=== PATIENT | female | born 1930 | race Caucasian/White ===

== ENCOUNTER 2017-01-08 12:17 | Emergency (ER) | payer MEDICARE, OTHER ==
[2017-01-08 12:31] VITALS: BP 137/52
[2017-01-08] MEDS ORDERED: Ketorolac 30 MG/ML SDV IM ONE (12:43)
[2017-01-08] MEDS ORDERED: Acetaminophen/HYDROcodone 325-10 MG Tab PO ONE (12:43)
--- NOTE | 2017-01-08 13:26 | EDM.PDOC ---
ED HPI GENERAL MEDICAL PROBLEM - General Chief Complaint: Lower Extremity Injury/Pain Stated Complaint: right knee pain Time Seen by Provider: 01/08/17 12:25 Source of Information: Reports: Patient History Limitations: Reports: No Limitations - History of Present Illness INITIAL COMMENTS - FREE TEXT/NARRATIVE: Patient is brought in via ambulance due to right knee pain and inflammation. She denies a fall today, states she fell on Monday and hurt her other(left) knee. Denies any trauma to the right knee recently. No other complaints today. 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 No pain when not using. Uses a walker to get around. Onset: Today, Sudden Duration: Intermittent Location: Reports: Lower Extremity, Right Quality: Reports: Ache Severity: Severe Worsens with: Reports: Movement Associated Symptoms: Reports: No Other Symptoms Right Knee Pain Score (Numeric/FACES): 10 - Related Data Allergies Allergy/AdvReac Type Severity Reaction Status Date / Time OKSANA Inhibitors Allergy Bronchospas Verified 12/30/15 20:21 ms valsartan [From Diovan] Allergy Bronchospas Verified 12/30/15 20:21 ms metoclopramide HCl AdvReac Nausea and Verified 12/31/15 08:42 [From Reglan] Vomiting Home Meds: Home Meds Aspirin [Halfprin] 81 mg PO DAILY 01/27/15 [History] Cholecalciferol (Vitamin D3) [Vitamin D3] 2,000 unit PO DAILY 01/27/15 [History] Cyanocobalamin (Vitamin B-12) [Cyanocobalamin Injection] 1,000 mcg IM ASDIRECTED 01/27/15 [History] Ezetimibe [Zetia] 10 mg PO DAILY 01/27/15 [History] Hydrochlorothiazide 25 mg PO DAILY 01/27/15 [History] Potassium Chloride [K-Tab ER] 20 meq PO DAILY 01/27/15 [History] Acetaminophen [Acetaminophen Extra Strength] 1,000 mg PO TID PRN 01/08/16 [ History] Carvedilol [Coreg] 3.125 mg PO BIDMEALS 01/08/16 [History] atorvaSTATin [Lipitor] 40 mg PO BEDTIME 01/08/16 [History] Acetaminophen/Diphenhydramine [Mapap PM] 1 tab PO BEDTIME PRN #0 tablet [Rx] Magnesium Chloride [Mag-64] 128 mg PO TID #100 tab.er 01/22/16 [Rx] Nystatin [Nystatin Crm] 1 gm TOP BID #1 tube 01/22/16 [Rx] Past Medical History HEENT History: Reports: Hard of Hearing Cardiovascular History: Reports: Hypertension Other Cardiovascular History: Valvular heart disease. hypopotassemia. 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: Musculoskeletal History: Reports: Osteoarthritis Other Musculoskeletal History: Carpal tunnel syndrome Other Endocrine/Metabolic History: Hyperglycemia Other Hematologic History: VitaminD deficiency Immunologic History: Reports: None - Infectious Disease History Infectious Disease History: Reports: C-Difficile - Past Surgical History HEENT Surgical History: Reports: Cataract Surgery Musculoskeletal Surgical History: Reports: Knee Replacement Social & Family History - Family History Other Oncologic Family History: sister of cancer - Tobacco Use Smoking Status *Q: Unknown Ever Smoked Years of Tobacco use: 5 Used Tobacco, but Quit: Yes Second Hand Smoke Exposure: Yes - Recreational Drug Use Recreational Drug Use: No Review of Systems - Review of Systems Review Of Systems: See Below Constitutional: Reports: No Symptoms Eyes: Reports: No Symptoms Ears: Reports: No Symptoms Nose: Reports: No Symptoms Mouth/Throat: Reports: No Symptoms Respiratory: Reports: No Symptoms Cardiovascular: Reports: No Symptoms GI/Abdominal: Reports: No Symptoms Genitourinary: Reports: No Symptoms Musculoskeletal: Reports: Leg Pain, Joint Swelling Skin: Reports: No Symptoms Neurological: Reports: No Symptoms Psychiatric: Reports: No Symptoms ED EXAM, GENERAL - Physical Exam Exam: See Below Exam Limited By: No Limitations General Appearance: Alert, WD/WN, Mild Distress Respiratory/Chest: No Respiratory Distress, Lungs Clear, Normal Breath Sounds, No Accessory Muscle Use, Chest Non-Tender Cardiovascular: Normal Peripheral Pulses, Regular Rate, Rhythm, No Murmur Peripheral Pulses: 2+: Posterior Tibial (L), Posterior Tibial (R), Dorsalis Pedis (L), Dorsalis Pedis (R) GI/Abdominal: Normal Bowel Sounds, Soft, Non-Tender Extremities: Normal Inspection, Normal Range of Motion, Non-Tender, Normal Capillary Refill, Pedal Edema, Other (right knee edematous, full range of motion , pain only on ambulation) Neurological: Alert, Oriented, CN II-XII Intact Psychiatric: Normal Affect, Normal Mood Skin Exam: Warm, Dry, Intact Lymphatic: No Adenopathy Course - Vital Signs Last Recorded V/S: Last Vital Signs Temp 37.2 C 01/08/17 12:24 Pulse 60 01/08/17 12:24 Resp 16 01/08/17 12:24 BP 137/52 L 01/08/17 12:24 Pulse Ox 94 L 01/08/17 12:24 - Orders/Labs/Meds Orders: Active Orders 24 hr Category Date Time Status Knee 3V Rt [CR] Stat Exams 01/08/17 12:43 Taken Meds: Medications Discontinued Medications Generic Name Dose Route Start Last Admin Trade Name Freq PRN Reason Stop Dose Admin Hydrocodone Bitart/Acetaminophen 1 tab 01/08/17 12:43 01/08/17 12:56 [place] 325-10 Mg PO 01/08/17 12:44 1 tab ONETIME ONE Administration Hydrocodone Bitart/Acetaminophen 1 packet 01/08/17 13:31 Take Home: Acetaminophen/Hydrocodone 325-10mg PO 01/08/17 13:32 ONETIME ONE Ketorolac Tromethamine 30 mg 01/08/17 12:43 01/08/17 13:01 Toradol IM 01/08/17 12:44 30 mg ONETIME ONE Administration - Re-Assessments/Exams Free Text/Narrative Re-Assessment/Exam: 01/08/17 13:29 x-ray negative for acute process, has joint effusion Departure - Departure Time of Disposition: 14:14 Disposition: Home, Self-Care 01 Condition: Good Clinical Impression: Swelling of knee joint, right Right knee DJD Qualifiers: Osteoarthritis type: other secondary Qualified Code(s): 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 You can safely apply ice for 20-30 minutes at a time, then remove for at least that long. Do not apply ice directly to skin without putting it in some protective cover like a pillow case or sock, etc. Alternate your pain medication with some ibuprofen for pain relief and to reduce the swelling you have. Please follow up with your regular medical provider for additional symptom complaints and plan on surgery in January. Please call us if you have any questions or concerns. 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 You can safely apply ice for 20-30 minutes at a time, then remove for at least that long. Do not apply ice directly to skin without putting it in some protective cover like a pillow case or sock, etc. Alternate your pain medication with some ibuprofen for pain relief and to reduce the swelling you are likely to encounter. Please follow up with your regular medical provider for additional symptom complaints and plan on surgery in January. Please call us if you have any questions or concerns.
[2017-01-08] MEDS ORDERED: Take Home: Acetaminophen/HYDROcodone 325-10 MG, 5 Tab Pack PO ONE (13:31)
== END 2017-01-08 14:31 | disposition home or self-care (01) ==
LOC: VM.ED 12:17
DX: M17.5 Other unilateral secondary osteoarthritis of knee (principal); I10 Essential (primary) hypertension; Z79.899 Other long term (current) drug therapy; Z87.440 Personal history of urinary (tract) infections; Z88.8 Allergy status to other drugs, medicaments and biological substances; Z79.82 Long term (current) use of aspirin; Z98.49 Cataract extraction status, unspecified eye; Z96.659 Presence of unspecified artificial knee joint; Z87.891 Personal history of nicotine dependence
CPT/HCPCS: 73562; 96372; 99283; 99284; A9270; J1885

== ENCOUNTER 2017-06-03 13:58 | Emergency (ER) | payer MEDICARE, OTHER ==
[2017-06-03 14:10] VITALS: BP 116/50
[2017-06-03] MEDS ORDERED: Take Home: Codeine/Promethazine 10-6.25 MG/5 ML Syrup 5 ML, 2 Cup Pack PO ONE (14:38)
--- NOTE | 2017-06-04 02:22 | EDM.PDOC ---
ED HPI GENERAL MEDICAL PROBLEM - General Chief Complaint: General Stated Complaint: COLD Time Seen by Provider: 06/03/17 14:25 Source of Information: Reports: Patient, Family History Limitations: Reports: No Limitations - History of Present Illness INITIAL COMMENTS - FREE TEXT/NARRATIVE: Pt. complains of 5 day history of congestion, cough, sore throat, and mild, intermittent diarrhea. She states that she is not experiencing any vomiting, chest pain, or shortness of breath. Denies any skin rashes. She has not been experiencing any weakness. Location: Reports: Generalized - Related Data Allergies Allergy/AdvReac Type Severity Reaction Status Date / Time OKSANA Inhibitors Allergy Bronchospas Verified 12/30/15 20:21 ms valsartan [From Diovan] Allergy Bronchospas Verified 12/30/15 20:21 ms metoclopramide HCl AdvReac Nausea and Verified 12/31/15 08:42 [From Reglan] Vomiting Home Meds: Home Meds Aspirin [Halfprin] 81 mg PO DAILY 01/27/15 [History] Cholecalciferol (Vitamin D3) [Vitamin D3] 2,000 unit PO DAILY 01/27/15 [History] Cyanocobalamin (Vitamin B-12) [Cyanocobalamin Injection] 1,000 mcg IM ASDIRECTED 01/27/15 [History] Hydrochlorothiazide 25 mg PO DAILY 01/27/15 [History] Potassium Chloride [K-Tab ER] 20 meq PO DAILY 01/27/15 [History] Acetaminophen [Acetaminophen Extra Strength] 1,000 mg PO TID PRN 01/08/16 [ History] Carvedilol [Coreg] 3.125 mg PO BIDMEALS 01/08/16 [History] Acetaminophen/Diphenhydramine [Mapap PM] 1 tab PO BEDTIME PRN #0 tablet [Rx] Magnesium Chloride [Mag-64] 128 mg PO TID #100 tab.er 01/22/16 [Rx] Nystatin [Nystatin Crm] 1 gm TOP BID #1 tube 01/22/16 [Rx] Lovastatin [Mevacor] 40 mg PO BEDTIME 01/08/17 [History] Metoprolol Succinate [Toprol Xl] 50 mg PO DAILY 01/08/17 [History] Codeine/Promethazine [Phenergan with Codeine] 5 ml PO Q6HR PRN #473 ml 06/03/17 [Rx] Past Medical History HEENT History: Reports: Hard of Hearing Cardiovascular History: Reports: Hypertension Other Cardiovascular History: Valvular heart disease. hypopotassemia. 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: Musculoskeletal History: Reports: Osteoarthritis Other Musculoskeletal History: Carpal tunnel syndrome Other Endocrine/Metabolic History: Hyperglycemia Other Hematologic History: VitaminD deficiency Immunologic History: Reports: None - Infectious Disease History Infectious Disease History: Reports: C-Difficile - Past Surgical History HEENT Surgical History: Reports: Cataract Surgery Other Neurological Surgeries/Procedures: LOWER BACK Musculoskeletal Surgical History: Reports: Knee Replacement Social & Family History - Family History Other Oncologic Family History: sister of cancer - Tobacco Use Smoking Status *Q: Former Smoker Years of Tobacco use: 5 Used Tobacco, but Quit: Yes Month Tobacco Last Used: 40 years ago Second Hand Smoke Exposure: Yes - Alcohol Use Days Per Week of Alcohol Use: 0 - Recreational Drug Use Recreational Drug Use: No ED ROS GENERAL - Review of Systems Review Of Systems: See Below Constitutional: Reports: Malaise, Decreased Appetite HEENT: Reports: Rhinitis, Sinus Problem Respiratory: Reports: Cough Cardiovascular: Reports: No Symptoms. Denies: Chest Pain Endocrine: Reports: Fatigue GI/Abdominal: Reports: Diarrhea. Denies: Black Stool, Bloody Stool, Distension , Flatus, Hematemesis : Reports: No Symptoms. Denies: Discharge, Dysuria, Incontinence Musculoskeletal: Reports: No Symptoms Skin: Reports: No Symptoms Neurological: Reports: No Symptoms Psychiatric: Reports: No Symptoms Hematologic/Lymphatic: Reports: No Symptoms Immunologic: Reports: No Symptoms ED EXAM, GENERAL - Physical Exam Exam: See Below Exam Limited By: No Limitations General Appearance: Alert, WD/WN, No Apparent Distress Ears: Normal External Exam, Normal Canal, Hearing Grossly Normal, Normal TMs Ear Exam: Bilateral Ear: Auricle Normal, Canal Normal, TM normal Nose: Normal Inspection, Normal Mucosa, No Blood Throat/Mouth: Normal Inspection, Normal Lips, Normal Teeth, Normal Gums, Normal Oropharynx, Normal Voice, No Airway Compromise Head: Atraumatic, Normocephalic Neck: Normal Inspection, Supple, Non-Tender, Full Range of Motion Respiratory/Chest: No Respiratory Distress, Lungs Clear, Normal Breath Sounds, No Accessory Muscle Use, Chest Non-Tender Cardiovascular: Normal Peripheral Pulses, Regular Rate, Rhythm, No Edema, No Gallop, No JVD, No Murmur, No Rub GI/Abdominal: Normal Bowel Sounds, Soft, Non-Tender, No Organomegaly, No Distention, No Abnormal Bruit, No Mass Back Exam: Normal Inspection, Full Range of Motion, NT Extremities: Normal Inspection, Normal Range of Motion, Non-Tender, Normal Capillary Refill, No Pedal Edema Neurological: Alert, Oriented, CN II-XII Intact, Normal Cognition, Normal Gait, Normal Reflexes, No Motor/Sensory Deficits Psychiatric: Normal Affect, Normal Mood Skin Exam: Warm, Dry, Intact, Normal Color, No Rash Lymphatic: No Adenopathy Course - Vital Signs Last Recorded V/S: Last Vital Signs Temp 36.7 C 06/03/17 14:06 Pulse 70 06/03/17 14:06 Resp 16 06/03/17 14:06 BP 116/50 L 06/03/17 14:06 Pulse Ox 97 06/03/17 14:06 - Orders/Labs/Meds Meds: Medications Discontinued Medications Generic Name Dose Route Start Last Admin Trade Name Freq PRN Reason Stop Dose Admin Promethazine HCl/Codeine 2 packet 06/03/17 14:38 06/03/17 15:02 Take Home: Codeine/Prometh 10-6.25 Mg, 2 Pack PO 06/03/17 14:39 2 packet ONETIME ONE Administration Departure - Departure Time of Disposition: 15:05 Disposition: Home, Self-Care 01 Condition: Good Clinical Impression: Upper respiratory infection - Discharge Information Prescriptions: Codeine/Promethazine [Phenergan with Codeine] 5 ml PO Q6HR PRN #473 ml PRN Reason: Cough Instructions: Upper Respiratory Infection, Adult, [id number] Referrals: Valorie Antonio MD [Primary Care Provider] - Forms: ED Department Discharge Additional Instructions: promethazine/codeine cough medicine 1 tsp. every 6 hours as needed for cough. Follow-up in clinic in 7-10 days, sooner if not improving.
== END 2017-06-03 15:05 | disposition home or self-care (01) ==
LOC: VM.ED 13:58
DX: J06.9 Acute upper respiratory infection, unspecified (principal); I10 Essential (primary) hypertension; Z88.8 Allergy status to other drugs, medicaments and biological substances; Z79.82 Long term (current) use of aspirin; Z79.899 Other long term (current) drug therapy; Z87.891 Personal history of nicotine dependence
CPT/HCPCS: 87804; 99284; A9270; 99283-GF

== ENCOUNTER 2017-06-07 13:02 | Observation (INO) | payer MEDICARE, OTHER ==
--- NOTE | 2017-06-07 13:29 | EDM.PDOC ---
ED HPI GENERAL MEDICAL PROBLEM - General Chief Complaint: Respiratory Problem Time Seen by Provider: 06/07/17 13:09 Source of Information: Reports: Patient, EMS Notes Reviewed, Family, Old Records , RN, RN Notes Reviewed History Limitations: Reports: No Limitations - History of Present Illness INITIAL COMMENTS - FREE TEXT/NARRATIVE: Patient presents to the emergency room at [facility] with a one-week history of congestion, cough, poor appetite. The patient was seen in this ER last week and was diagnosed with an upper respiratory infection and sent home. The patient states since her visit here she has progressively gotten weak, left side greater than the right. The patient states her weakness is mainly in the left lower leg. The patient denies any focal neurological deficits. The patient states that she did fall last evening when trying to ambulate in her home. The patient denies any LOC. The patient denies any head trauma. The patient states her appetite has been poor. She has been trying to drink lots of water. No SOB. No chest pain. Patient denies any N/V/D. Onset: Gradual - Related Data Allergies Allergy/AdvReac Type Severity Reaction Status Date / Time OKSANA Inhibitors Allergy Bronchospas Verified 06/07/17 13:19 ms valsartan [From Diovan] Allergy Bronchospas Verified 06/07/17 13:19 ms metoclopramide HCl AdvReac Nausea and Verified 06/07/17 13:19 [From Reglan] Vomiting Home Meds: Home Meds Aspirin [Halfprin] 81 mg PO DAILY 01/27/15 [History] Cholecalciferol (Vitamin D3) [Vitamin D3] 2,000 unit PO DAILY 01/27/15 [History] Cyanocobalamin (Vitamin B-12) [Cyanocobalamin Injection] 1,000 mcg IM ASDIRECTED 01/27/15 [History] Hydrochlorothiazide 25 mg PO DAILY 01/27/15 [History] Potassium Chloride [K-Tab ER] 20 meq PO DAILY 01/27/15 [History] Acetaminophen [Acetaminophen Extra Strength] 1,000 mg PO TID PRN 01/08/16 [ History] Carvedilol [Coreg] 3.125 mg PO BIDMEALS 01/08/16 [History] Acetaminophen/Diphenhydramine [Mapap PM] 1 tab PO BEDTIME PRN #0 tablet [Rx] Magnesium Chloride [Mag-64] 128 mg PO TID #100 tab.er 01/22/16 [Rx] Nystatin [Nystatin Crm] 1 gm TOP BID #1 tube 01/22/16 [Rx] Lovastatin [Mevacor] 40 mg PO BEDTIME 01/08/17 [History] Metoprolol Succinate [Toprol Xl] 50 mg PO DAILY 01/08/17 [History] Codeine/Promethazine [Phenergan with Codeine] 5 ml PO Q6HR PRN #473 ml 06/03/17 [Rx] Past Medical History HEENT History: Reports: Hard of Hearing Cardiovascular History: Reports: Hypertension Other Cardiovascular History: Valvular heart disease. hypopotassemia. 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: Musculoskeletal History: Reports: Osteoarthritis Other Musculoskeletal History: Carpal tunnel syndrome Other Endocrine/Metabolic History: Hyperglycemia Other Hematologic History: VitaminD deficiency Immunologic History: Reports: None - Infectious Disease History Infectious Disease History: Reports: C-Difficile - Past Surgical History HEENT Surgical History: Reports: Cataract Surgery Other Neurological Surgeries/Procedures: LOWER BACK Musculoskeletal Surgical History: Reports: Knee Replacement Social & Family History - Family History Other Oncologic Family History: sister of cancer - Tobacco Use Smoking Status *Q: Former Smoker Years of Tobacco use: 5 Used Tobacco, but Quit: Yes Month Tobacco Last Used: 40 years ago Second Hand Smoke Exposure: Yes - Alcohol Use Days Per Week of Alcohol Use: 0 - Recreational Drug Use Recreational Drug Use: No ED ROS GENERAL - Review of Systems Review Of Systems: See Below Constitutional: Reports: Weakness, Decreased Appetite. Denies: Fever, Chills HEENT: Reports: Eye Discharge. Denies: Ear Pain, Rhinitis, Sinus Problem, Throat Pain Respiratory: Reports: Shortness of Breath, Cough. Denies: Sputum Cardiovascular: Denies: Chest Pain, Palpitations GI/Abdominal: Denies: Abdominal Pain, Nausea, Vomiting Skin: Reports: No Symptoms Neurological: Reports: Weakness (LLE). Denies: Dizziness, Headache, Numbness, Paresthesia, Tingling ED EXAM, GENERAL - Physical Exam Exam: See Below Exam Limited By: No Limitations General Appearance: Alert, No Apparent Distress, Obese Ears: Normal External Exam, Normal Canal, Normal TMs Ear Exam: Bilateral Ear: TM normal Nose: Normal Inspection, Clear Rhinorrhea Throat/Mouth: Normal Inspection, Normal Oropharynx, No Airway Compromise Respiratory/Chest: No Respiratory Distress, Lungs Clear, Normal Breath Sounds Cardiovascular: Normal Peripheral Pulses, Regular Rate, Rhythm Peripheral Pulses: 2+: Radial (L), Radial (R) GI/Abdominal: Normal Bowel Sounds, Soft, Non-Tender Neurological: Alert, Oriented, No Motor/Sensory Deficits Skin Exam: Warm, Dry, Intact, Normal Color, No Rash Course - Vital Signs Last Recorded V/S: Last Vital Signs Temp 35.6 C 06/07/17 13:10 Pulse 87 06/07/17 13:10 Resp 20 06/07/17 13:10 BP 113/63 06/07/17 13:10 Pulse Ox 94 L 06/07/17 13:10 - Orders/Labs/Meds Orders: Active Orders 24 hr Category Date Time Status Chest 1V Frontal [CR] Stat Exams 06/07/17 13:42 Taken Head wo Cont [CT] Stat Exams 06/07/17 14:28 Taken BASIC METABOLIC PANEL,BMP [CHEM] Stat Lab 06/07/17 13:55 Received C-REACTIVE PROTEIN [CHEM] Stat Lab 06/07/17 13:55 Received CULTURE BLOOD [BC] Stat Lab 06/07/17 13:55 Received CULTURE BLOOD [BC] Stat Lab 06/07/17 14:02 Received LACTIC ACID [CHEM] Stat Lab 06/07/17 13:55 Received MAGNESIUM [CHEM] Stat Lab 06/07/17 13:55 Received Sodium Chloride 0.9% [Saline Flush] Med 06/07/17 13:43 Active 10 ml FLUSH ASDIRECTED PRN Blood Culture x2 Reflex Set [OM.PC] Stat Oth 06/07/17 13:44 Ordered Peripheral IV Insertion Adult [OM.PC] Routine Oth 06/07/17 13:43 Ordered Medication Orders Sodium Chloride (Saline Flush) 10 ml FLUSH ASDIRECTED PRN PRN Reason: Keep Vein Open Labs: Laboratory Tests 06/07/17 Range/Units 13:55 WBC 6.2 (4.0-10.0) x10^3/uL RBC 3.53 L (4.00-5.50) x10^6/uL Hgb 10.4 L (12.0-16.0) g/dL Hct 31.8 L (33.0-47.0) % MCV 90.1 D (78.0-93.0) fL MCH 29.5 (26.0-32.0) pg MCHC 32.7 (32.0-36.0) g/dL RDW Coeff of Jad 13.7 (10.0-15.0) % Plt Count 166 (130-400) x10^3/uL Neut % (Auto) 81.5 H (50.0-80.0) % Lymph % (Auto) 6.3 L (25.0-50.0) % [place] % (Auto) 9.1 (2.0-11.0) % Eos % (Auto) 2.9 (0.0-4.0) % Baso % (Auto) 0.2 (0.2-1.2) % Meds: Medications Generic Name Dose Route Start Last Admin Trade Name Freq PRN Reason Stop Dose Admin Sodium Chloride 10 ml 06/07/17 13:43 Saline Flush FLUSH ASDIRECTED PRN Keep Vein Open Discontinued Medications Generic Name Dose Route Start Last Admin Trade Name Freq PRN Reason Stop Dose Admin Lactated Ringer's 1,000 mls @ 999 mls/hr 06/07/17 13:47 Ringers, Lactated IV 06/07/17 14:47 ONETIME ONE Departure - Departure Time of Disposition: 14:53 Disposition: Refer to Observation Condition: Good Clinical Impression: Dry cough, Dehydration Lower extremity weakness Qualifiers: Laterality: left Qualified Code(s): R29.898 - Other symptoms and signs involving the musculoskeletal system - Discharge Information - Problem List Review Problem List Initiated/Reviewed/Updated: Yes - My Orders Last 24 Hours: My Active Orders 06/07/17 13:42 Chest 1V Frontal [CR] Stat 06/07/17 13:43 Sodium Chloride 0.9% [Saline Flush] 10 ml FLUSH ASDIRECTED PRN Peripheral IV Insertion Adult [OM.PC] Routine 06/07/17 13:44 Blood Culture x2 Reflex Set [OM.PC] Stat 06/07/17 13:55 BASIC METABOLIC PANEL,BMP [CHEM] Stat C-REACTIVE PROTEIN [CHEM] Stat CULTURE BLOOD [BC] Stat LACTIC ACID [CHEM] Stat MAGNESIUM [CHEM] Stat 06/07/17 14:02 CULTURE BLOOD [BC] Stat 06/07/17 14:28 Head wo Cont [CT] Stat - Assessment/Plan Admission H&P: Please use this note as an admission H&P Last 24 Hours: My Active Orders 06/07/17 13:42 Chest 1V Frontal [CR] Stat 06/07/17 13:43 Sodium Chloride 0.9% [Saline Flush] 10 ml FLUSH ASDIRECTED PRN Peripheral IV Insertion Adult [OM.PC] Routine 06/07/17 13:44 Blood Culture x2 Reflex Set [OM.PC] Stat 06/07/17 13:55 BASIC METABOLIC PANEL,BMP [CHEM] Stat C-REACTIVE PROTEIN [CHEM] Stat CULTURE BLOOD [BC] Stat LACTIC ACID [CHEM] Stat MAGNESIUM [CHEM] Stat 06/07/17 14:02 CULTURE BLOOD [BC] Stat 06/07/17 14:28 Head wo Cont [CT] Stat
[2017-06-07] MEDS ORDERED: Lactated Ringers 1,000 ML IV ONE (13:47)
[2017-06-07] MEDS ORDERED: Magnesium Sulfate/Water 2 GM in Premix Bag 1 BAG IV ONE (16:57)
[2017-06-07] MEDS: Lactated Ringers 1,000 ML IV SCH (17:19)
[2017-06-07] MEDS: Sodium Chloride 0.9% 10 ML Syringe FLUSH PRN ×2 (17:24→21:04)
[2017-06-07] MEDS ORDERED: Acetaminophen 500 MG Tab PO PRN (20:47)
[2017-06-07] MEDS ORDERED: Cyanocobalamin (Vitamin B12) 1,000 MCG/ML SDV IM SCH (21:00)
[2017-06-07] MEDS: cefTRIAXone 1 GM Vial IVPUSH SCH (21:04)
--- NOTE | 2017-06-07 22:08 | PCM.HP ---
H&P History of Present Illness - General Date of Service: 06/07/17 Admit Problem/Dx: Urinary Tract Infection without hematuria Lower left leg weakness Dehydration Dry Cough Source of Information: Patient, Family, Old Records, RN, RN Notes Reviewed History Limitations: Reports: No Limitations - History of Present Illness Initial Comments - Free Text/Narative: Patient presented to the emergency room at [facility] earlier today with a one-week history of congestion, cough, poor appetite. The patient was seen in this ER last week and was diagnosed with an upper respiratory infection and sent home. The patient states since her visit here she has progressively gotten weaker of the left lower extremity. The patient states her weakness is mainly in the left lower leg. The patient denies any focal neurological deficits. The patient states that she did fall last evening when trying to ambulate in her home. The patient denies any LOC. The patient denies any head trauma. The patient states her appetite has been poor. She has been trying to drink lots of water. No SOB. No chest pain. Patient denies any N/V/D. Patient states she has urinary frequency, urinary urgency, and dysuria for the past few days. 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 She states she was recently seen by Orthopedics for left shoulder pain. She is scheduled for an injection soon. She has also been referred to [facility] physical therapy for her left shoulder pain. She has a history of severe arthritis. Onset of Symptoms: Reports: Gradual - Related Data Allergies/Adverse Reactions: Allergies Allergy/AdvReac Type Severity Reaction Status Date / Time OKSANA Inhibitors Allergy Bronchospas Verified 06/07/17 13:19 ms valsartan [From Diovan] Allergy Bronchospas Verified 06/07/17 13:19 ms metoclopramide HCl AdvReac Nausea and Verified 06/07/17 13:19 [From Reglan] Vomiting Home Medications: Home Meds Aspirin [Halfprin] 81 mg PO DAILY 01/27/15 [History] Cyanocobalamin (Vitamin B-12) [Cyanocobalamin Injection] 1,000 mcg IM Q28D 01/27 [History] Hydrochlorothiazide 25 mg PO DAILY 01/27/15 [History] Potassium Chloride [K-Tab ER] 20 meq PO DAILY 01/27/15 [History] Acetaminophen [Acetaminophen Extra Strength] 1,000 mg PO TID PRN 01/08/16 [ History] Lovastatin [Mevacor] 40 mg PO BEDTIME 01/08/17 [History] Metoprolol Succinate [Toprol Xl] 50 mg PO DAILY 01/08/17 [History] Magnesium Chloride [Slow-Mag] 2 tab PO TID 06/07/17 [History] Meloxicam 7.5 mg PO DAILY 06/07/17 [History] Past Medical History HEENT History: Reports: Hard of Hearing Cardiovascular History: Reports: Hypertension Other Cardiovascular History: Valvular heart disease. hypopotassemia. Venous peripheral insuffiency Genitourinary History: Reports: Urinary Incontinence, UTI, Recurrent [employer] History: Reports: Musculoskeletal History: Reports: Osteoarthritis Other Musculoskeletal History: Carpal tunnel syndrome Other Endocrine/Metabolic History: Hyperglycemia Other Hematologic History: VitaminD deficiency Immunologic History: Reports: None - Infectious Disease History Infectious Disease History: Reports: C-Difficile - Past Surgical History HEENT Surgical History: Reports: Cataract Surgery Other Neurological Surgeries/Procedures: LOWER BACK Musculoskeletal Surgical History: Reports: Knee Replacement Social & Family History - Family History Family Medical History: Noncontributory Other Oncologic Family History: sister of cancer - Tobacco Use Smoking Status *Q: Former Smoker Tobacco Use Within Last Twelve Months: No Years of Tobacco use: 5 Used Tobacco, but Quit: Yes Month Tobacco Last Used: 40 years ago Second Hand Smoke Exposure: No - Caffeine Use Caffeine Use: Reports: Coffee, Tea - Alcohol Use Days Per Week of Alcohol Use: 0 - Recreational Drug Use Recreational Drug Use: No H&P Review of Systems - Review of Systems: Review Of Systems: See Below General: Reports: Weakness, Decreased Appetite. Denies: Fever, Chills Pulmonary: Denies: Shortness of Breath, Cough Cardiovascular: Denies: Chest Pain, Palpitations Gastrointestinal: Denies: Abdominal Pain, Nausea, Vomiting Genitourinary: Reports: Dysuria, Frequency, Burning Musculoskeletal: Denies: Leg Pain Skin: Reports: No Symptoms Neurological: Reports: Weakness (LLE). Denies: Headache, Numbness, Paresthesia , Tingling Exam - Exam Exam: See Below - Vital Signs Vital Signs: Last Vital Signs Temp 37.4 C 06/07/17 17:17 Pulse 65 06/07/17 17:17 Resp 20 06/07/17 17:17 BP 105/41 L 06/07/17 17:17 Pulse Ox 97 06/07/17 17:17 Weight: 96.797 kg - Exam General: Alert, Oriented, Cooperative Lungs: Clear to Auscultation, Normal Respiratory Effort, Decreased Breath Sounds Cardiovascular: Regular Rate, Regular Rhythm, Normal S1, Normal S2 GI/Abdominal Exam: Normal Bowel Sounds, Soft, Non-Tender (Female) Exam: Deferred Extremities: Normal Inspection, Pedal Edema (+2 chronic with venous stasis), Limited Range of Motion (due to advanced arthritis) Skin: Warm, Dry, Intact Neuro Extensive - Mental Status: Alert, Oriented x3 - Patient Data Lab Results Last 24 hrs: Laboratory Results - last 24 hr 06/07/17 Range/Units 17:05 Urine Color Yellow (YELLOW) Urine Appearance Turbid H (CLEAR) Urine pH 5.0 (5.0-8.0) Ur Specific [place] 1.010 Urine Protein Negative (NEGATIVE) mg/dL Urine Glucose (UA) Negative (NEGATIVE) mg/dL Urine Ketones Negative (NEGATIVE) mg/dL Urine Occult Blood Negative (NEGATIVE) Urine Nitrite Positive H (NEGATIVE) Urine Bilirubin Negative (NEGATIVE) Urine Urobilinogen 0.2 (0.2) EU/dL Ur Leukocyte Esterase Small H (NEGATIVE) Urine RBC 5-10 H (NOT SEEN) /HPF Urine WBC 20-30 H (NOT SEEN) /HPF Ur Squamous Epith Cells Moderate H (NEGATIVE) /HPF Amorphous Sediment Few Urine Bacteria Many H (NEGATIVE) /HPF Urine Mucus Few H (NEGATIVE) /LPF Ur Yeast w Hyphae Moderate Urine Yeast (Budding) Few Result Diagrams: 06/07/17 13:55 06/07/17 13:55 *Q Meaningful Use (ADM) - VTE *Q VTE Criteria *Q: VTE Mechanical Contraindications *Q: At Risk for Falls - Stroke *Q Stroke Criteria *Q: - AMI *Q AMI Criteria *Q: - Problem List (1) UTI (urinary tract infection) SNOMED Code(s): 07292013 ICD Code: N39.0 - URINARY TRACT INFECTION, SITE NOT SPECIFIED Status: Acute Priority: Medium Current Visit: Yes Qualifiers: Urinary tract infection type: acute cystitis Hematuria presence: without hematuria Qualified Code(s): N30.00 - Acute cystitis without hematuria (2) Lower extremity weakness SNOMED Code(s): 130469437 ICD Code: R29.898 - OTH SYMPTOMS AND SIGNS INVOLVING THE MUSCULOSKELETAL SYSTEM Status: Acute Priority: Medium Current Visit: Yes Qualifiers: Laterality: left Qualified Code(s): R29.898 - Other symptoms and signs involving the musculoskeletal system (3) Dehydration SNOMED Code(s): 75244508 ICD Code: E86.0 - DEHYDRATION Status: Acute Priority: Medium Current Visit: Yes (4) Dry cough SNOMED Code(s): 90149728 ICD Code: R05 - COUGH Status: Acute Priority: Low Current Visit: Yes (5) Coronary artery disease SNOMED Code(s): 89636342 ICD Code: I25.10 - ATHSCL HEART DISEASE OF [place] CORONARY ARTERY W/O ANG PCTRS Status: Chronic Current Visit: No Qualifiers: Coronary Disease-Associated Artery/Lesion type: [place] artery [place] vs. transplanted heart: [place] heart Associated angina: without angina Qualified Code(s): I25.10 - Atherosclerotic heart disease of [place] coronary artery without angina pectoris (6) Congestive heart failure SNOMED Code(s): 64859020 ICD Code: I50.9 - HEART FAILURE, UNSPECIFIED Status: Chronic Current Visit: No Qualifiers: Congestive heart failure type: unspecified congestive heart failure type Congestive heart failure chronicity: chronic Qualified Code(s): I50.9 - Heart failure, unspecified (7) Essential hypertension SNOMED Code(s): 99475458 ICD Code: I10 - ESSENTIAL (PRIMARY) HYPERTENSION Status: Chronic Priority : Low Current Visit: Yes (8) Hyperlipidemia SNOMED Code(s): 35628304 ICD Code: E78.5 - HYPERLIPIDEMIA, UNSPECIFIED Status: Chronic Current Visit: No Qualifiers: Hyperlipidemia type: mixed hyperlipidemia Qualified Code(s): E78.2 - Mixed hyperlipidemia Problem List Initiated/Reviewed/Updated: Yes Orders Last 24hrs: Active Orders 24 hr Category Date Time Status Patient Status [ADT] Routine ADT 06/07/17 16:58 Active Intake and Output [RC] 08,20 Care 06/07/17 16:59 Active Oxygen Therapy [RC] PRN Care 06/07/17 16:58 Active Oxygen Therapy [RC] PRN Care 06/07/17 17:00 Active Up With Assistance [RC] ASDIRECTED Care 06/07/17 16:58 Active VTE/DVT Education [RC] PER UNIT ROUTINE Care 06/07/17 16:58 Active VTE/DVT Education [RC] PER UNIT ROUTINE Care 06/07/17 17:00 Active Vital Signs [RC] 06,10,14,18,22,02 Care 06/07/17 17:00 Active Vital Signs [RC] Q4H Care 06/07/17 16:58 Active Consult to Case Management [CONS] Routine Cons 06/07/17 17:00 Active OT Evaluation and Treatment [CONS] Routine Cons 06/07/17 17:00 Active PT Evaluation and Treatment [CONS] Routine Cons 06/07/17 17:00 Active 2 Gram Sodium Diet [DIET] Diet 06/07/17 Breakfast Active BASIC METABOLIC PANEL,BMP [CHEM] Routine Lab 06/08/17 05:11 Ordered CBC WITH AUTO DIFF [HEME] Routine Lab 06/08/17 05:11 Ordered LACTIC ACID [CHEM] Routine Lab 06/08/17 05:11 Ordered MAGNESIUM [CHEM] Routine Lab 06/08/17 05:11 Ordered Acetaminophen [Tylenol Extra Strength] Med 06/07/17 20:47 Active 1,000 mg PO TID PRN Aspirin [Halfprin] Med 06/08/17 08:00 Active 81 mg PO DAILY Cyanocobalamin (Vitamin B12) [Vitamin B12] Med 06/13/17 08:00 Active 1,000 mcg IM Q28D Hydrochlorothiazide Med 06/08/17 08:00 Active 25 mg PO DAILY Lactated Ringers [Ringers, Lactated] 1,000 ml Med 06/07/17 17:15 Active IV ASDIRECTED Metoprolol Succinate [Toprol XL] Med 06/08/17 08:00 Active 50 mg PO DAILY Potassium Chloride [Klor-Con M20] Med 06/08/17 08:00 Active 20 meq PO DAILY Simvastatin [Zocor] Med 06/08/17 20:00 Active 20 mg PO BEDTIME cefTRIAXone [Rocephin] Med 06/07/17 21:00 Active 1 gm IVPUSH BEDTIME Resuscitation Status Routine Resus Stat 06/07/17 16:58 Ordered Medication Orders Acetaminophen (Tylenol Extra Strength) 1,000 mg PO TID PRN PRN Reason: Pain (mild 1-3) Aspirin (Halfprin) 81 mg PO DAILY ARNIE Ceftriaxone Sodium (Rocephin) 1 gm IVPUSH BEDTIME ARNIE Last Admin: 06/07/17 21:04 Dose: 1 gm Cyanocobalamin (Vitamin B12) 1,000 mcg IM Q28D [facility] Hydrochlorothiazide (Hydrochlorothiazide) 25 mg PO DAILY ARNIE Lactated Ringer's (Ringers, Lactated) 1,000 mls @ 75 mls/hr IV ASDIRECTED ARNIE Last Admin: 06/07/17 17:19 Dose: 75 mls/hr Metoprolol Succinate (Toprol Xl) 50 mg PO DAILY [facility] Potassium Chloride (Klor-Con M20) 20 meq PO DAILY ARNIE Simvastatin (Zocor) 20 mg PO BEDTIME ARNIE Sodium Chloride (Saline Flush) 10 ml FLUSH ASDIRECTED PRN PRN Reason: Keep Vein Open Last Admin: 06/07/17 21:04 Dose: 10 ml Admin: 06/07/17 17:24 Dose: 10 ml Assessment/Plan Comment:: 86-year-old female with a past medical history of essential hypertension, coronary artery disease, chronic diastolic heart failure, hyperlipidemia, is admitted to the observation unit [facility] for urinary tract infection, left lower leg weakness, dehydration and dry cough. The patient will be started on Rocephin IV daily for her urinary tract infection. I will ask physical and occupational therapy to see the patient in consult for her left lower leg weakness. We will rehydrate the patient with IV fluids for her elevated BUN/ creatinine. The patient's creatinine level is 1.2, her baseline is 0.8-1.0. The patient will also have her magnesium supplemented IV for a magnesium level of 1.5. The patient has a chronic history of low magnesium levels. I will hold the patient's meloxicam given her elevated creatinine level. The patient may have Tylenol for any pain/discomfort. The patient wishes to be a full code. DVT prophylaxis will be early ambulation. The patient does wish to be transferred to a higher level of care should the need arise. I do not anticipate the patient 's admission will be greater than 48 hours.
[2017-06-08] MEDS: Lactated Ringers 1,000 ML IV SCH ×2 (03:30→21:01)
[2017-06-08] MEDS: Hydrochlorothiazide 25 MG Tab PO SCH (08:29)
[2017-06-08] MEDS: Metoprolol Succinate 50 MG Tab.ER PO SCH (08:29)
[2017-06-08] MEDS: Potassium Chloride 20 MEQ Tab.ER PO SCH (08:29)
[2017-06-08] MEDS: Aspirin 81 MG Tab.EC PO SCH (08:30)
[2017-06-08] MEDS: Codeine/Promethazine 10-6.25 MG/5 ML Syrup 5 ML UD Cup PO SCH ×2 (18:45→23:50)
[2017-06-08] MEDS ORDERED: Simvastatin 20 MG Tab PO SCH (20:00)
[2017-06-08] MEDS: cefTRIAXone 1 GM Vial IVPUSH SCH (21:02)
--- NOTE | 2017-06-08 23:34 | PCM.PN ---
- General Info Date of Service: 06/08/17 Admission Dx/Problem (Free Text): Pt. states she is feeling better. Complains of less weakness. Nursing staff states that she has been up ambulating to the bathroom and her appetite has been adequate. Pt. denies any chest pain or shortness of breath. No weakness, nausea or vomiting. Functional Status: Reports: Pain Controlled - Review of Systems General: Reports: No Symptoms HEENT: Reports: No Symptoms Pulmonary: Reports: No Symptoms Cardiovascular: Reports: No Symptoms Gastrointestinal: Reports: No Symptoms Genitourinary: Reports: No Symptoms Musculoskeletal: Reports: No Symptoms Skin: Reports: No Symptoms Neurological: Reports: Difficulty Walking (improving), Weakness Psychiatric: Reports: No Symptoms - Patient Data Vitals - Most Recent: Last Vital Signs Temp 36.6 C 06/08/17 20:46 Pulse 69 06/08/17 20:46 Resp 18 06/08/17 20:46 BP 123/72 06/08/17 20:46 Pulse Ox 98 06/08/17 20:46 Weight - Most Recent: 96.797 kg I&O - Last 24 Hours: Intake & Output 06/08/17 06/08/17 06/09/17 14:59 22:59 06:59 Intake Total 840 2095 Output Total 1100 300 Balance -260 1795 Lab Results Last 24 Hours: Laboratory Results - last 24 hr 06/08/17 06/08/17 06/08/17 Range/Units 06:48 06:48 06:48 WBC 4.4 (4.0-10.0) x10^3/uL RBC 2.77 L (4.00-5.50) x10^6/uL Hgb 8.5 L D (12.0-16.0) g/dL Hct 25.9 L (33.0-47.0) % MCV 93.5 H D (78.0-93.0) fL MCH 30.7 (26.0-32.0) pg MCHC 32.8 (32.0-36.0) g/dL RDW Coeff of Jad 13.6 (10.0-15.0) % Plt Count 141 (130-400) x10^3/uL Neut % (Auto) 62.6 (50.0-80.0) % Lymph % (Auto) 17.0 L (25.0-50.0) % [place] % (Auto) 14.7 H (2.0-11.0) % Eos % (Auto) 5.5 H (0.0-4.0) % Baso % (Auto) 0.2 (0.2-1.2) % Sodium 140 (136-145) mmol/L Potassium 3.2 L (3.5-5.1) mmol/L Chloride 103 (98-107) mmol/L Carbon Dioxide 27 (21-32) mmol/L BUN 18 (7-18) mg/dL Creatinine 0.9 (0.55-1.02) mg/dL Est Cr Clr Drug Dosing 42.78 mL/min Estimated GFR (MDRD) 60 Glucose 101 (74-106) mg/dL Lactic Acid 0.8 (0.4-2.0) mmol/L Calcium 8.1 L (8.5-10.1) mg/dL Magnesium 1.8 (1.8-2.4) mg/dL Med Orders - Current: Current Medications Acetaminophen (Tylenol Extra Strength) 1,000 mg PO TID PRN PRN Reason: Pain (mild 1-3) Aspirin (Halfprin) 81 mg PO DAILY [facility] Last Admin: 06/08/17 08:30 Dose: 81 mg Ceftriaxone Sodium (Rocephin) 1 gm IVPUSH BEDTIME [facility] Last Admin: 06/08/17 21:02 Dose: 1 gm Cyanocobalamin (Vitamin B12) 1,000 mcg IM Q28D [facility] Hydrochlorothiazide (Hydrochlorothiazide) 25 mg PO DAILY [facility] Last Admin: 06/08/17 08:29 Dose: 25 mg Lactated Ringer's (Ringers, Lactated) 1,000 mls @ 75 mls/hr IV ASDIRECTED [facility] Last Admin: 06/08/17 21:01 Dose: 75 mls/hr Metoprolol Succinate (Toprol Xl) 50 mg PO DAILY [facility] Last Admin: 06/08/17 08:29 Dose: 50 mg Potassium Chloride (Klor-Con M20) 20 meq PO DAILY [facility] Last Admin: 06/08/17 08:29 Dose: 20 meq Promethazine HCl/Codeine (Phenergan With Codeine) 5 ml PO Q6HR [facility] Last Admin: 06/08/17 18:45 Dose: 5 ml Simvastatin (Zocor) 20 mg PO BEDTIME ARNIE Last Admin: 06/08/17 21:02 Dose: 20 mg Sodium Chloride (Saline Flush) 10 ml FLUSH ASDIRECTED PRN PRN Reason: Keep Vein Open Last Admin: 06/07/17 21:04 Dose: 10 ml Discontinued Medications Cyanocobalamin (Vitamin B12) 1,000 mcg IM Q28D [facility] Lactated Ringer's (Ringers, Lactated) 1,000 mls @ 999 mls/hr IV ONETIME ONE Stop: 06/07/17 14:47 Last Admin: 06/07/17 14:45 Dose: 999 mls/hr Magnesium Sulfate 2 gm/ Premix 50 mls @ 25 mls/hr IV ONETIME ONE Stop: 06/07/17 18:56 Last Admin: 06/07/17 17:20 Dose: 25 mls/hr - Exam General: Alert, Oriented HEENT: Pupils Equal, Pupils Reactive, EOMI, Mucous Membr. Moist/[place] Neck: Supple Lungs: Clear to Auscultation, Normal Respiratory Effort Cardiovascular: Regular Rate, Regular Rhythm GI/Abdominal Exam: Normal Bowel Sounds, Soft, Non-Tender, No Organomegaly, No Distention, No Abnormal Bruit, No Mass, Pelvis Stable (Female) Exam: Deferred Back Exam: Normal Inspection, Full Range of Motion Extremities: Normal Inspection, Normal Range of Motion, Non-Tender, No Pedal Edema, Normal Capillary Refill Peripheral Pulses: 3+: Radial (L), Radial (R), Dorsalis Pedis (L), Dorsalis Pedis (R) Skin: Warm, Dry, Intact Neurological: No New Focal Deficit Psy/Mental Status: Alert, Normal Affect, Normal Mood - Problem List Review Problem List Initiated/Reviewed/Updated: Yes - My Orders Last 24 Hours: My Active Orders 06/08/17 18:30 Codeine/Promethazine [Phenergan with Codeine] 5 ml PO Q6HR - Plan Plan:: 86-year-old female with a past medical history of essential hypertension, coronary artery disease, chronic diastolic heart failure, hyperlipidemia, is admitted to the observation unit [facility] for urinary tract infection, left lower leg weakness, dehydration and dry cough. The patient will be started on Rocephin IV daily for her urinary tract infection. I will ask physical and occupational therapy to see the patient in consult for her left lower leg weakness. We will rehydrate the patient with IV fluids for her elevated BUN/ creatinine. The patient's creatinine level is 1.2, her baseline is 0.8-1.0. The patient will also have her magnesium supplemented IV for a magnesium level of 1.5. The patient has a chronic history of low magnesium levels. I will hold the patient's meloxicam given her elevated creatinine level. The patient may have Tylenol for any pain/discomfort. The patient wishes to be a full code. DVT prophylaxis will be early ambulation. The patient does wish to be transferred to a higher level of care should the need arise. I do not anticipate the patient 's admission will be greater than 48 hours.
[2017-06-09] MEDS: Codeine/Promethazine 10-6.25 MG/5 ML Syrup 5 ML UD Cup PO SCH ×2 (06:13→11:29)
[2017-06-09] MEDS: Hydrochlorothiazide 25 MG Tab PO SCH (07:42)
[2017-06-09] MEDS: Aspirin 81 MG Tab.EC PO SCH (07:42)
[2017-06-09] MEDS: Potassium Chloride 20 MEQ Tab.ER PO SCH (07:42)
[2017-06-09] MEDS: Metoprolol Succinate 50 MG Tab.ER PO SCH (07:42)
[2017-06-09 10:17] VITALS: BP 108/46
--- NOTE | 2017-06-09 11:06 | PCM.DCSUM1 ---
Discharge Summary - Hospital Course Free Text/Narrative:: Pt. was admitted with weakness secondary to UTI by Maikel Burkett on 06/07/17. Pt. was also dehydrated. She was started on Rocephin and rehydrated and is feeling much better. She is no longer being followed by PT and is medically cleared for discharge today. - Discharge Data Discharge Date: 06/09/17 Discharge Disposition: Home, Self-Care 01 Condition: Good - Discharge Diagnosis/Problem(s) (1) Dehydration SNOMED Code(s): 93327728 ICD Code: E86.0 - DEHYDRATION Status: Acute Priority: Medium Current Visit: Yes (2) UTI (urinary tract infection) SNOMED Code(s): 02415478 ICD Code: N39.0 - URINARY TRACT INFECTION, SITE NOT SPECIFIED Status: Acute Priority: Medium Current Visit: Yes Qualifiers: Urinary tract infection type: acute cystitis Hematuria presence: without hematuria Qualified Code(s): N30.00 - Acute cystitis without hematuria - Patient Summary/Data Consults: Consultations 06/07/17 17:00 Consult to Case Management [CONS] Routine OT Evaluation and Treatment [CONS] Routine PT Evaluation and Treatment [CONS] Routine - Discharge Plan Home Medications: Home Meds Aspirin [Halfprin] 81 mg PO DAILY 01/27/15 [History] Cyanocobalamin (Vitamin B-12) [Cyanocobalamin Injection] 1,000 mcg IM Q28D 01/27 [History] Hydrochlorothiazide 25 mg PO DAILY 01/27/15 [History] Potassium Chloride [K-Tab ER] 20 meq PO DAILY 01/27/15 [History] Acetaminophen [Acetaminophen Extra Strength] 1,000 mg PO TID PRN 01/08/16 [ History] Lovastatin [Mevacor] 40 mg PO BEDTIME 01/08/17 [History] Metoprolol Succinate [Toprol Xl] 50 mg PO DAILY 01/08/17 [History] Magnesium Chloride [Slow-Mag] 2 tab PO TID 06/07/17 [History] Meloxicam 7.5 mg PO DAILY 06/07/17 [History] Referrals: Valorie Antonio MD [Primary Care Provider] - 06/16/17 3:00 pm (You have a follow up appt. [facility] Dr. Mabel Antonio on June 16, 2017 at 3PM at [facility]) - General Info Date of Service: 06/09/17 Functional Status: Reports: Pain Controlled - Review of Systems General: Reports: No Symptoms HEENT: Reports: No Symptoms Pulmonary: Reports: No Symptoms Cardiovascular: Reports: No Symptoms Gastrointestinal: Reports: No Symptoms Genitourinary: Reports: No Symptoms Musculoskeletal: Reports: No Symptoms Skin: Reports: No Symptoms Neurological: Reports: No Symptoms Psychiatric: Reports: No Symptoms - Patient Data Vitals - Most Recent: Last Vital Signs Temp 37.1 C 06/09/17 10:00 Pulse 63 06/09/17 10:00 Resp 20 06/09/17 10:00 BP 108/46 L 06/09/17 10:00 Pulse Ox 95 06/09/17 10:00 Weight - Most Recent: 96.797 kg I&O - Last 24 hours: Intake & Output 06/08/17 06/09/17 06/09/17 22:59 06:59 14:59 Intake Total 2095 1500 240 Output Total 300 1100 300 Balance 1795 400 -60 Med Orders - Current: Current Medications Acetaminophen (Tylenol Extra Strength) 1,000 mg PO TID PRN PRN Reason: Pain (mild 1-3) Aspirin (Halfprin) 81 mg PO DAILY [facility] Last Admin: 06/09/17 07:42 Dose: 81 mg Ceftriaxone Sodium (Rocephin) 1 gm IVPUSH BEDTIME [facility] Last Admin: 06/08/17 21:02 Dose: 1 gm Cyanocobalamin (Vitamin B12) 1,000 mcg IM Q28D [facility] Hydrochlorothiazide (Hydrochlorothiazide) 25 mg PO DAILY [facility] Last Admin: 06/09/17 07:42 Dose: 25 mg Metoprolol Succinate (Toprol Xl) 50 mg PO DAILY [facility] Last Admin: 06/09/17 07:42 Dose: 50 mg Potassium Chloride (Klor-Con M20) 20 meq PO DAILY [facility] Last Admin: 06/09/17 07:42 Dose: 20 meq Promethazine HCl/Codeine (Phenergan With Codeine) 5 ml PO Q6HR [facility] Last Admin: 06/09/17 06:13 Dose: 5 ml Simvastatin (Zocor) 20 mg PO BEDTIME [facility] Last Admin: 06/08/17 21:02 Dose: 20 mg Sodium Chloride (Saline Flush) 10 ml FLUSH ASDIRECTED PRN PRN Reason: Keep Vein Open Last Admin: 06/07/17 21:04 Dose: 10 ml Discontinued Medications Cyanocobalamin (Vitamin B12) 1,000 mcg IM Q28D [facility] Lactated Ringer's (Ringers, Lactated) 1,000 mls @ 999 mls/hr IV ONETIME ONE Stop: 06/07/17 14:47 Last Admin: 06/07/17 14:45 Dose: 999 mls/hr Magnesium Sulfate 2 gm/ Premix 50 mls @ 25 mls/hr IV ONETIME ONE Stop: 06/07/17 18:56 Last Admin: 06/07/17 17:20 Dose: 25 mls/hr Lactated Ringer's (Ringers, Lactated) 1,000 mls @ 75 mls/hr IV ASDIRECTED [facility] Last Admin: 06/08/17 21:01 Dose: 75 mls/hr - Exam General: Reports: Alert, Oriented HEENT: Reports: Pupils Equal, Pupils Reactive, EOMI, Mucous Membr. Moist/[place] Neck: Reports: Supple Lungs: Reports: Clear to Auscultation, Normal Respiratory Effort Cardiovascular: Reports: Regular Rate, Regular Rhythm GI/Abdominal Exam: Normal Bowel Sounds, Soft, Non-Tender, No Organomegaly, No Distention, No Abnormal Bruit, No Mass, Pelvis Stable (Female) Exam: Normal External Exam, Normal Speculum Exam, Normal Bimanual Exam Rectal (Female) Exam: Normal Exam, Normal Rectal Tone Back Exam: Reports: Normal Inspection, Full Range of Motion Extremities: Normal Inspection, Normal Range of Motion, Non-Tender, No Pedal Edema, Normal Capillary Refill Skin: Reports: Warm, Dry, Intact Wound/Incisions: Reports: Healing Well Neurological: Reports: No New Focal Deficit Psy/Mental Status: Reports: Alert, Normal Affect, Normal Mood *Q Meaningful Use (DIS) - VTE *Q VTE Criteria *Q: VTE Mechanical Contraindications *Q: At Risk for Falls - Stroke *Q Stroke Criteria *Q: - AMI *Q AMI Criteria *Q:
[2017-06-13] MEDS ORDERED: Cyanocobalamin (Vitamin B12) 1,000 MCG/ML SDV IM SCH (08:00)
== END 2017-06-09 14:30 | disposition home or self-care (01) ==
LOC: VM.ED 13:02 → VM.MS 14:55
PROVIDERS: ADMIT Nurse Practitioner Family; ATTEND Nurse Practitioner Family
DX: E86.0 Dehydration (principal); N30.00 Acute cystitis without hematuria; E87.6 Hypokalemia; R73.9 Hyperglycemia, unspecified; I10 Essential (primary) hypertension; E55.9 Vitamin D deficiency, unspecified; R29.898 Other symptoms and signs involving the musculoskeletal system; I25.10 Atherosclerotic heart disease of native coronary artery without angina pectoris; I50.9 Heart failure, unspecified; E78.2 Mixed hyperlipidemia; Z87.891 Personal history of nicotine dependence; Z79.82 Long term (current) use of aspirin; Z79.899 Other long term (current) drug therapy; Z88.8 Allergy status to other drugs, medicaments and biological substances; Z91.81 History of falling
CPT/HCPCS: 36415; 70450; 71045; 80048; 81001; 83605; 83735; 85025; 86140; 87040; 96361; 96365; 96366; 96375; 96376; 97161; 97165; 99217; 99220; 99225; 99285; A9270; G0378; J0696; J7050; J7120; J3475

== ENCOUNTER 2018-12-21 11:02 | Inpatient (IN) | payer MEDICARE, OTHER ==
[2018-12-21] MEDS ORDERED: Sodium Chloride 0.9% 10 ML Syringe FLUSH PRN (11:09)
[2018-12-21] MEDS ORDERED: Lactated Ringers 1,000 ML IV SCH (11:15)
[2018-12-21] MEDS ORDERED: Ondansetron 4 MG/2 ML SDV IV PRN (11:35)
[2018-12-21] MEDS ORDERED: Acetaminophen 325 MG Tab PO PRN (11:35)
[2018-12-21] MEDS ORDERED: Acetaminophen 500 MG Tab PO PRN (11:46)
[2018-12-21] MEDS ORDERED: Cyanocobalamin (Vitamin B12) 1,000 MCG/ML SDV IM SCH (12:00)
[2018-12-21] MEDS ORDERED: Albuterol HFA 18 Gm Inhaler INH PRN (12:07)
[2018-12-21 12:30] LABS: ANION GAP 16.7 mmol/L (10-20)
[2018-12-21] MEDS ORDERED: Iopamidol 612 MG/ML 100 ML Bottle IVPUSH ONE (12:45)
[2018-12-21] MEDS: Dextrose 5%-Lactated Ringers 1,000 ML IV SCH ×2 (13:03→19:35)
[2018-12-21] MEDS: Famotidine 20 MG Tab PO SCH (13:50)
[2018-12-21] MEDS: Enoxaparin 30 MG/0.3 ML Syringe SUBCUT SCH (13:51)
--- NOTE | 2018-12-21 14:04 | CT ---
[id number] CT/CT Abdomen Pelvis W IV EXAM: CT Abdomen Pelvis W IV CLINICAL DATA: ABDOMINAL PAIN. COMPARISON STUDY: None. FINDINGS: Gallbladder is distended. There is a dense rounded structure dependently in the gallbladder measuring 13 x 26 x 11 mm. Findings could represent either noncalcified cholelithiasis or gallbladder mass. There is dilation of the biliary ductal system, including the intrahepatic and common ducts to the level of nearly the ampulla. Common bile duct measures up to 4 mm in diameter. No radiographic evidence of obstructing stone or mass. There is a mild amount of fat stranding in the right upper quadrant in the region of the pancreas head, second portion of duodenum, and gallbladder fossa. Of note, there is a diverticulum arising from the second portion of the duodenum as well. Pancreas duct is not dilated. No evidence of a pancreas mass. Liver is otherwise unremarkable. Borderline splenomegaly, measuring approximately 13 cm in AP dimension. Kidneys and adrenal glands are unremarkable. No lymphadenopathy in the abdomen or pelvis. Scattered colonic diverticula. No evidence of acute diverticulitis. No colitis. No small bowel obstruction or inflammation. Air layers dependently in the urinary bladder, correlate for history of recent surgery dictation. IMPRESSION: Abnormal appearance of the gallbladder and blurry ductal system. Findings are nonspecific and possibly sequela of acute cholecystitis and/or choledocholithiasis. Underlying gallbladder mass is also possible, described above. However, no radiographically evident stone in the common bile duct. Correlation with LFTs. Consider surgical consultation for further evaluation. Sabino Gan MD 12/21/18 0632 Thank you for allowing us to participate in the care of your patient.
--- NOTE | 2018-12-21 14:08 | CT ---
[id number] CT/CT Head WO IV EXAM: CT Head WO IV CLINICAL DATA: HISTORY OF MENINGIOMA. COMPARISON STUDY: May 2017. FINDINGS: Stable appearance of a predominantly calcified extra-axial mass abutting the falx cerebra right of midline in the frontal region. Findings are consistent with a meningioma. Mass measures 30 x 25 x 35 mm compared to 30 x 26 x 34 mm previously in May 2017. No new lesions. No acute intracranial hemorrhage. No extra-axial fluid collection. No hydrocephalus. Findings are superimposed on changes of moderate chronic small vessel disease, including diffuse parenchymal atrophy. IMPRESSION: No change in appearance of right frontal meningioma since examination prior examination. Sabino Gan MD 12/21/18 [id number] Thank you for allowing us to participate in the care of your patient.
[2018-12-21] MEDS: Magnesium Hydroxide 400 MG/5 ML Susp 30 ML Cup PO PRN (16:18)
--- NOTE | 2018-12-21 18:24 | HP ---
CHIEF COMPLAINT: Weakness with failure to thrive. HISTORY OF PRESENT ILLNESS: The patient is an 88-year-old female who has not been feeling well since mid November. She has not had much of an appetite. She has become very constipated. She had a clinic visit on 12/11/2018 where she was noted to be quite constipated. She was given Citroma and the abdominal x-ray showed much stool present, but no other lab work was done or changes to medication. Since then, she has had very little to eat. She will take a few bites and she stops eating. She has not really thrown up. She has not had a bowel movement for about 3 days. No fever or chills. The patient has not been taking any sort of stool softeners. She is noted to have some mild cognitive dysfunction. She lives with her son. He comments that he will make a meal for them, he will put food in front of her, she will take a bite and then she quits eating. She has also gotten quite weak where she is not able to get up off the chair by herself. Her son needs to help lift her up and she almost falls off the chair. She denies feeling depressed. The patient was noted on her colonoscopy, that was done on 09/11/2018, that she had an incomplete scope due to severe diverticulosis and stricturing noted of her colon. No polyps or masses were seen in the sigmoid or rectum. Next, scope is to be as needed. She is also noted to have diverticulosis. The patient has also been following with Neurosurgery and that she was noted to have an incidental finding of meningioma on a head CT on 12/30/2015. She has had further MRI workups and they opted to just observe her lesions. Her most recent head MRI was done on 10/17/2018 at which time it showed grossly stable right anterior parafalcine meningioma, mild edema of the adjacent right frontal lobe appears stable as well. MEDICATIONS: Medications that the patient is currently on are Mevacor 40 mg 1 pill every night, Mobic 7.5 mg 1 pill daily as needed for moderate pain, potassium chloride 10 mEq 2 pills once a day, hydrochlorothiazide 25 mg 1 pill daily, albuterol 2 puffs every 4 hours as needed for cough, metoprolol XL 50 mg 1 pill daily, magnesium chloride/calcium 64/106 two pills twice a day, aspirin 81 mg daily. ALLERGIES: To OKSANA inhibitors, she has cough and bronchospasm; also Diovan causes wheezing; Reglan causes nausea and vomiting. PAST MEDICAL HISTORY: The patient has hypertension, hypercholesterolemia, hyperglycemia, vitamin B12 deficiency, vitamin D deficiency, fen-phen exposure, abnormal hearing. She has had opacity noted in her mid lung and abnormal chest x-ray on 06/05/2018. Workup for chronic cough. She had a CT of her chest which came back normal. She has had allergies. Asymptomatic cholelithiasis. 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 She had tubular adenoma in 2007; [id number] dysplasia, 05/2009; 3 polyps with bowel perforation; 2012, tubular adenomatous polyp, poor prep; 2014, one tubular adenomatous polyp, incomplete scope. Carpal tunnel syndrome. Chronic cough, started albuterol. She had PFTs at [facility], which were normal. Negative methacholine challenge. She has had chronic diastolic CHF. Most recent echocardiogram done on 12/31/2015 showed ejection fraction of 65%, trivial aortic regurgitation and significant mitral regurgitation, trivial tricuspid regurgitation. The patient has had C. difficile colitis on 01/05/2016, had been on vancomycin for 12 days. She has had cognitive dysfunction noted on 01/08/2016 after severe illness, mild forgetfulness on discharge. 01/23/2016, she had a cognitive evaluation for OT. She scored 26/30 on her mini-mental status exam. She has had coronary artery disease. On 12/31/2015, she had non-STEMI. Cardiolite was positive. PET scan showed reduced coronary flow, which showed nonobstructive epicardial coronary artery disease, small vessel disease. She has had osteopenia noted in 2002. DEXA scan in 2005 was the same. She has not had a followup DEXA scan since. She has had hypertension. Fen-phen exposure, gastroesophageal reflux. She had an EGD in 2005, and she has had hiatal hernia noted by upper GI. She has had hyperglycemia; hypercholesterolemia; hyponatremia; mild depressive disorder, had been on Prozac in the past; peripheral venous insufficiency; vitamin B12 deficiency, down to 184 in 2009; vitamin D deficiency in 2009. PAST SURGICAL HISTORY: She has had left knee arthroplasty in 2005, right knee arthroplasty in 1992, carpal tunnel release in 2010, bilateral cataract surgery, hysterectomy with abdominal salpingo-oophorectomy in 1976. She has had low back disk surgery in 1977 with fusion. She has had rotator cuff surgery on the right in 2001, spine surgery, total knee on the right with total revision in 2017. FAMILY MEDICAL HISTORY: Mother has had uterine cancer. Son has had colon cancer. Uncles had diabetes. SOCIAL HISTORY: She is . She lives with her son, Ino. 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 Does not smoke or consume alcohol. She used to be involved in [employer] for weight loss. REVIEW OF SYSTEMS: The patient has lost weight of 25 pounds since 10/17/2014. Skin has no rashes. She is pleasantly forgetful. She does have a chronic cough. No chest pain. No desire to eat. Does not have abdominal pain. She is constipated. No burning with urination. No incontinence. She does have stiffness of her legs. She is weak, difficult time to stand up. She is pleasantly forgetful. PHYSICAL EXAMINATION: Vital Signs: Showed that her weight was 200. Her blood pressure is 104/58, temperature is 98.7, pulse is 80, saturations are 95%. Skin: Pale, warm, and dry. HEENT: Her conjunctivae are clear. She is edentulous in her mouth. Mucous membranes are dry. No injection or erythema. Tympanic membranes are normal. Neck: No anterior cervical lymphadenopathy. No thyromegaly. Pulmonary: Lungs are clear to auscultation. The patient does have a chronic cough. Cardiovascular: Heart has regular rate and rhythm without murmurs or bruits. Abdomen: Bowel sounds are present. Obese, soft, nontender. Breasts: Deferred. Genito-pelvic: Deferred. Extremities: Lower extremities have well-healed incisions. She does have some obesity on her lower legs, but no edema appreciated. She is weak with moving all extremities. Reflexes are 1+. Psychiatric: Psych brennan, the patient is pleasantly forgetful and has poor short - term memory. She recognizes who I am. She is oriented x3. Does know the clinic that she is at. IMPRESSION: 1. Failure to thrive. 2. Dehydration. 3. Weakness. 4. Cognitive dysfunction. 5. Brain meningioma. 6. Gastroesophageal reflux disease. 7. Chronic cough. 8. Hypertension. 9. Hypercholesterolemia. 10.Known history of colon narrowing with previous colon stricture with colon polyps. 11.Diverticulosis. 12. Asymptomatic cholelithiasis. PLAN: The patient will be admitted to acute care. We will do lab work on patient. We will place her on IV fluids. We will hold her nonsteroidal as well as we will hold her aspirin and her diuretic. We will place her on Pepcid. We will check for H. pylori infection. We will place her on Lovenox for DVT prophylaxis. We will repeat imaging of her head to make sure that there is no fluid shift or masses present. We will have PT and OT work with the patient, may need consideration for starting of an anti-dementia medication such as Aricept. The patient may not be able to return to her home environment and may need to look at permanent long-term care solutions. Code level status was discussed with her son and she does not desire to be resuscitated nor desire to be intubated. The patient may of current problems as well that are unknown. GM12/21/2018 12:03:37 MODL: 12/21/2018 17:21:40 /[id number]
[2018-12-21] MEDS ORDERED: Non-Formulary Medication 1 Each PO SCH (20:00)
[2018-12-22] MEDS ORDERED: Bisacodyl 10 MG Supp RECTAL PRN (08:19)
[2018-12-22] MEDS: Potassium Chloride 10 MEQ Tab.ER PO SCH (08:26)
[2018-12-22] MEDS: Metoprolol Succinate 50 MG Tab.ER PO SCH (08:26)
[2018-12-22 08:27] LABS: ANION GAP 13.4 mmol/L (10-20)
--- NOTE | 2018-12-22 08:27 | PN ---
Progress Note for DAVID KUMAR Date: 12/22/2018 Room #: VM.217 SUBJECTIVE: Today is the patient's hospital day #2. She was admitted yesterday with failure to thrive, fatigue, no appetite. Her initial lab work was fairly unremarkable other than her hemoglobin was 11.3. Iron storage studies show anemia of chronic disease. Comprehensive metabolic profile showed slight elevation of alkaline phosphatase. ProBNP was 477. Her creatinine was 1.5. Lipase 71. Vitamin B12 greater than 1500, vitamin D 29. Thyroid normal. Urinalysis was contaminated, possible infection. The patient underwent a head CT, which showed meningioma chronic, but otherwise no new changes. Abdominal CT showed cholelithiasis with questionably abnormal gallbladder wall with some slight stranding around it. The patient was started on Pepcid. We are awaiting H. pylori stool test on her. The patient has received IV fluids since coming. The patient denies feeling depressed. She is noted to be forgetful. She notes physical therapy tried to work with her yesterday, but she was "too fatigued." OBJECTIVE: Vital Signs: Today, her weight is 90.3 kg, which is up 0.7 kg from yesterday. Her temperature is 36.7, pulse 66, blood pressure is 117/57, respiratory rate is 18, sats are 93%. General: She appears little withdrawn. She is starting to eat her breakfast. Does have a little cough noted. Heart: Regular rate and rhythm. Abdomen: Bowel sounds are present. It is soft. It is nontender. Neurologic: The patient is pleasantly forgetful. LABORATORY DATA: Pending yet today. IMPRESSION: 1. Failure to thrive, unclear etiology. 2. Cholelithiasis with gallbladder abnormality. 3. Mild dehydration, improving. 4. Chronic constipation. 5. Gastroesophageal reflux disease. PLAN: We will reduce her IV fluid rate. We will set up for an MRI of her gallbladder with MRCP. We will most likely switch her to a proton pump inhibitor once we have her stool test obtained for H. pylori. Until then, we will continue her on Pepcid and we will have her get a dose of milk of magnesia to help stimulate her bowels today. GM12/22/2018 08:13:29 MODL: 12/22/2018 08:22:12 /[id number]
[2018-12-22] MEDS: Enoxaparin 30 MG/0.3 ML Syringe SUBCUT SCH (08:30)
[2018-12-22] MEDS: Famotidine 20 MG Tab PO SCH (08:30)
[2018-12-22] MEDS: Magnesium Hydroxide 400 MG/5 ML Susp 30 ML Cup PO PRN (08:39)
[2018-12-22] MEDS: Dextrose 5%-Lactated Ringers 1,000 ML IV SCH ×2 (09:28→19:33)
[2018-12-22] MEDS: Sulfamethoxazole/Trimethoprim 400-80 MG Tab PO SCH ×2 (13:10→19:33)
--- NOTE | 2018-12-22 17:28 | PCM.SN ---
- Free Text/Narrative Note: UA looks to show UTI. Will start treatment with bactrim ss one pill twice a day for 3 days,
[2018-12-22] MEDS: Pantoprazole 40 MG Tab.CR PO SCH (19:32)
[2018-12-23] MEDS ORDERED: Dextrose 5%-Lactated Ringers 1,000 ML IV SCH (07:00)
[2018-12-23] MEDS: Sulfamethoxazole/Trimethoprim 400-80 MG Tab PO SCH ×2 (08:04→20:07)
[2018-12-23] MEDS: Enoxaparin 30 MG/0.3 ML Syringe SUBCUT SCH (08:04)
[2018-12-23] MEDS: Potassium Chloride 10 MEQ Tab.ER PO SCH (08:04)
[2018-12-23] MEDS: Metoprolol Succinate 50 MG Tab.ER PO SCH (08:05)
[2018-12-23 08:11] LABS: ANION GAP 9.9 mmol/L (10-20)
--- NOTE | 2018-12-23 10:48 | PN ---
Progress Note for DAVID KUMAR Date: 12/23/2018 Room #: VM.217 SUBJECTIVE: This is the patient's third hospitalization day for failure to thrive. Yesterday, her lab work showed that she did have a bladder infection with gram-negative rods. Sensitivity is pending. She was started on Bactrim yesterday. Also, she was switched to Protonix instead of Pepcid because of problems with frequent burping. The patient denies any pain at all today. Therapies have not been able to work with her through the weekend status. There is a question about type of MRI imaging that is available here at the hospital, which will need to be clarified. OBJECTIVE: Vital Signs: Her weight has not been taken yet today. Her temperature is 36.6, pulse is 60, blood pressure is 117/60, respiratory rate is 18, sats are 93%. General: She is appearing more brighter, more alert, pleasant, talkative. Still has some cough noted. Heart: Regular rate and rhythm. Lungs: Clear to auscultation. Abdomen: Bowel sounds present. Abdomen is soft, nontender. No guarding. No rebound. IMPRESSION: 1. Failure to thrive. 2. Urinary tract infection. 3. Mild hypokalemia. 4. Dehydration, improved. 5. Meningioma. 6. Cholelithiasis with abnormal gallbladder by CT scan. PLAN: Once her current IV fluids are done, we will saline lock her IV fluids. We will see what her potassium comes back today. If it has gone lower, we will need to replace this. We will continue the [facility] single strength for her bladder infection, and we will have therapy start to work with her tomorrow to see about strengthening. GM12/23/2018 07:32:37 MODL: 12/23/2018 10:41:00 /[id number]
[2018-12-23] MEDS: Pantoprazole 40 MG Tab.CR PO SCH (20:07)
[2018-12-24 06:53] LABS: ANION GAP 9.1 mmol/L (10-20)
[2018-12-24] MEDS: Potassium Chloride 10 MEQ Tab.ER PO SCH (07:55)
[2018-12-24] MEDS: Enoxaparin 30 MG/0.3 ML Syringe SUBCUT SCH (07:55)
[2018-12-24] MEDS: Sulfamethoxazole/Trimethoprim 400-80 MG Tab PO SCH (07:55)
[2018-12-24] MEDS: Metoprolol Succinate 50 MG Tab.ER PO SCH (07:55)
[2018-12-24] MEDS: Ciprofloxacin 250 MG Tab PO SCH ×2 (08:36→19:58)
--- NOTE | 2018-12-24 09:37 | PN ---
Progress Note for DAVID KUMAR Date: 12/24/2018 Room #: VM.217 SUBJECTIVE: This is patient's 4th hospitalization day for failure to thrive with UTI. She is feeling better, not much appetite. Her CT of her abdomen was abnormal with her gallbladder area with gallstones and were waiting MRI imaging to be done. The patient does have a chronic cough, which has been worked up before, previous CT, but does seem to be a little worse today. She denies any pain. Therapies have not worked with her yet today or since admission. OBJECTIVE: Vital Signs: Her weight from yesterday was up, 93.6 kg, up 2.9 kg from previous day. Her temperature is 36.3, pulse 85, blood pressure is 123/56, respiratory rate is 18, saturations 95%. General: The patient does have a chronic cough. Heart: Regular rate and rhythm. Lungs: Reveal few inspiratory crackles on bases. Abdomen: Bowel sounds present. Soft and nontender. Lower Extremities: No edema. LABORATORY DATA: Her urine culture did come back showing E. coli, which is resistant to sulfa. Her white blood cell count has dropped down to 2.9, hemoglobin is 9.2 with platelets 87 with 64 segs, 14 lymphs. Sodium 139, potassium 4.1, creatinine 0.9, BUN 19, glucose 59. IMPRESSION: 1. Failure to thrive, unclear etiology. 2. Urinary tract infection with Escherichia coli. 3. Anemia of chronic disease. 4. Chronic cough. 5. Gastroesophageal reflux disease. 6. Mild cognitive dysfunction. 7. Meningioma. 8. Weakness. 9. Some pancytopenia. PLAN: We will stop the sulfa and place her on Cipro instead. We are awaiting PT and OT assessment on the patient. We will await the MRI imaging. We will recheck lab work. We do anticipate the patient would benefit from swing bed and most likely tomorrow she would be able to go there. GM12/24/2018 08:21:51 MODL: 12/24/2018 09:31:21 /[id number]
--- NOTE | 2018-12-24 11:27 | CR ---
[id number] RAD/RAD Chest PA And Lateral EXAM: RAD Chest PA And Lateral INDICATION: CHRONIC COUGH. COMPARISON: None. DISCUSSION: Cardiomediastinal silhouette is stable in size and contour. No infiltrate, effusion, pneumothorax, or edema. Low lung volumes with associated vascular crowding. Findings suggestive of chronic obstructive pulmonary disease. IMPRESSION: No acute cardiopulmonary abnormality. Yogi Evangelista DO 12/24/18 1126 Thank you for allowing us to participate in the care of your patient.
--- NOTE | 2018-12-24 19:29 | MR ---
[id number] MR/MRI Abdomen WO IV EXAM: ABDOMINAL MRI WITHOUT CONTRAST INDICATION: Cholelithiasis and abnormal CT. COMPARISON: CT of December 21, 2018. DISCUSSION: Cholelithiasis with 15 x 13 x 8 mm layering stone in the body of the gallbladder and small volume layering gallbladder sludge. No wall thickening or surrounding inflammatory changes to suggest acute cholecystitis. No suspicious mass is identified. There is mild intra and extrahepatic bile duct dilation with a couple of tiny filling defects suggested in the distal common duct measuring 1 to 2 mm suspicious for choledocholithiasis. Dilation is to the level of the ampulla and the common duct measures about 11 mm in greatest diameter similar to the prior study. No pancreatic duct dilation is identified. ERCP would be useful if there is clinical evidence of biliary obstruction. The pylorus, first and second segments of the duodenum appear mildly thick-walled with surrounding edema. These changes could relate to ulcer, gastritis/duodenitis, or neoplasm. The left kidney contains a few exophytic cyst one of which is hemorrhagic. The largest cyst arises from the mid to lower pole measuring about 12 mm in diameter. The kidneys are otherwise normal in appearance. The spleen is mildly enlarged measuring about 13 cm in length. Scattered colonic diverticula without evidence of diverticulitis in the partially imaged colon. The partially imaged small bowel is normal in appearance. The adrenal glands and pancreas are normal in appearance. Degenerative changes are noted in the spine. L1 compression fracture. IMPRESSION: 1. Mild intra and extrahepatic biliary duct dilation to the level of the ampulla appearing to potentially relate to a couple of tiny calculi in the distal common bile duct. Consider ERCP if there is an elevated bilirubin or other clinical evidence of biliary obstruction. 2. Cholelithiasis and small volume layering sludge in the gallbladder. No evidence of acute cholecystitis or gallbladder soft tissue mass. 3. Mild inflammatory changes and wall thickening involving the pylorus, first and second segments of the duodenum. These changes could relate to duodenitis, ulcer disease or neoplasm. Consider upper endoscopy. Weston Leija MD 12/24/188 Thank you for allowing us to participate in the care of your patient.
[2018-12-24] MEDS: Pantoprazole 40 MG Tab.CR PO SCH (19:59)
[2018-12-25 07:06] LABS: ANION GAP 12.1 mmol/L (10-20)
[2018-12-25] MEDS: Potassium Chloride 10 MEQ Tab.ER PO SCH (07:40)
[2018-12-25] MEDS: Ciprofloxacin 250 MG Tab PO SCH (07:40)
[2018-12-25] MEDS: Enoxaparin 30 MG/0.3 ML Syringe SUBCUT SCH (07:40)
[2018-12-25] MEDS: Metoprolol Succinate 50 MG Tab.ER PO SCH (07:40)
[2018-12-25 07:41] VITALS: BP 142/66; PULSE 66
[2018-12-25] MEDS ORDERED: Magnesium Oxide 400 MG Tab PO SCH (08:15)
[2018-12-25] MEDS ORDERED: Hydrochlorothiazide 25 MG Tab PO SCH (08:15)
--- NOTE | 2018-12-25 09:41 | PN ---
Progress Note for DAVID KUMAR Date: 12/25/2018 Room #: VM.217 SUBJECTIVE: This is the patient's 6th hospitalization day. She is feeling better. Yesterday, she had undergone an MRI of her abdomen. Her appetite is a little bit better. She was seen by Therapies yesterday and felt to have needs for both OT as well as PT. Her urine culture did show E. coli that was resistant to sulfa, so she had been switched to Cipro on 12/24/2018. Also, she had Protonix added and her Nexium has been held. OBJECTIVE: Vital Signs: Her weight today is up to 94.1 kg, which is up essentially 5 kg since admission, but up 0.3 kg from yesterday. Her temperature is 37.4, pulse 66, blood pressure is 142/66, respiratory rate 12, saturations are 97%. Skin: [place], warm, and dry. Heart: Regular rate and rhythm. Lungs: Few crackles on bases which do improve with deep inspiration. Abdomen: Bowel sounds present. Soft, nontender. Extremities: No edema. LABORATORY DATA: Her lab today shows that her white blood cell count is 2.7, her hemoglobin is 9.3, platelets are 95 with 59 segs, 3 bands, 16 lymphocytes, 12 monos, 10 eosinophils. Sodium is 140, potassium 4.1, creatinine 1.0, GFR 52. Magnesium is low at 1.6. LFTs are normal. Her proBNP is elevated at 1287. Albumin is low at 2.1. MICROBIOLOGY: Her chest x-ray was read as having cardiomegaly with no vascular possible COPD changes. Her MR of her abdomen came back showing cholelithiasis with biliary sludge, possible small stones in the pancreatic duct. There was slight widening. There was also noted some duodenitis present. Diverticula were noted without diverticulitis. Adrenal glands were normal. Pancreas otherwise was normal. IMPRESSION: 1. Failure to thrive, multifactorial. 2. Dehydration, mild, improved. 3. Cholelithiasis, asymptomatic. 4. Duodenitis, most likely secondary to nonsteroidals. 5. Acute kidney injury, improved. 6. Urinary tract infection with Escherichia coli. 7. Mild cognitive dysfunction. 8. Hypomagnesemia. PLAN: We will resume her hydrochlorothiazide to help with her fluid retention. We will resume oral magnesium, but we will use the formulation present at the hospital. We will place her on swing bed today as she will need PT and OT. We will continue Protonix to help with her stomach. We will hold her meloxicam and we will continue antibiotics for her bladder infection. We will continue Lovenox until she is ambulatory. Anticipate her time on swing bed to be about a week with intent to be able to return home as long as her son is able to care for her. The patient is code level 2 status. GM12/25/2018 08:19:33 MODL: 12/25/2018 09:34:40 /[id number]
--- NOTE | 2018-12-26 08:11 | DISCH ---
PRIMARY DIAGNOSES: 1. Failure to thrive. 2. Dehydration. 3. Acute kidney injury. 4. Urinary tract infection with Escherichia coli. 5. Asymptomatic cholelithiasis. 6. Duodenitis. 7. Mild hypomagnesemia. 8. Hypertension. 9. Chronic cough. 10.Meningioma, stable, of her brain. 11.Chronic mild cognitive dysfunction. 12.Osteoarthritis. 13.Gastroesophageal reflux disease. 14.Hypercholesterolemia. SUMMARY OF HISTORY AND PHYSICAL: The patient presented to the clinic for a recheck of constipation with poor appetite. She has had a 20-pound weight loss over the past month. She was not eating well and has not been voiding. She was quite weak, was not able to get out of the chair by herself, and required her son to help get her ambulatory. She had a colonoscopy on 09/11/2018, which did show diverticulosis and a stricture with inability to view the entire colon. She has not been having any fever or chills. The patient also has had a noted meningioma, which is felt to be benign and has been followed by Neurosurgery since 2016. Most recent MRI in 2019 showed it was grossly stable. PHYSICAL EXAMINATION ON ADMISSION: General: She was quite weak. Vital Signs: Her weight was 200 pounds, blood pressure was 104/50, her temperature was 97.5, pulse was 80, and saturation was 95%. Abdomen: Showed bowel sounds were present. It was soft, obese. Extremities: She had no edema. SUMMARY OF HOSPITAL COURSE: The patient was placed on acute care. She was given IV hydration. Her diuretics, nonsteroidals, and aspirin were held. She was placed on Pepcid until stool studies for H pylori could be obtained. This is still pending at the time of discharge. She was placed on Lovenox for DVT prophylaxis. The patient to note had had her bowel stimulated with both milk of magnesia as well as a suppository. By next morning, she was feeling a little bit better and had not had pain. The patient had been switched to a proton pump inhibitor. Her appetite started to improve. Her IV fluids were able to be discontinued. By 12/24/2018, we were able to do an MRI of her abdomen, which did show cholelithiasis. There was possibly a small stone in the pancreatic duct, but she did not have any elevated liver function tests or elevated lipase level, so it was not felt that this was causing obstructive symptoms. There was some inflammation noted of her duodenum. LABORATORY DATA: Her white blood cell count on admission showed to be 5.3, had gone down to 2.7; her hemoglobin gone from 10.4 down to 9.3 with hydration, but felt also to reflect anemia of chronic disease; and her platelet count on admission had been 98, and that has stayed stable at 95. She had 59% segs, 3 bands, and 16 lymphocytes. On 12/25/2018, her sodium was 140; potassium 4.1; creatinine had gone from admission of 1.5 down to 1.0, which was stable; her GFR was 33 on admission, improved up to 59; her glucose was 106 on admission, was 91. Her albumin was slightly reduced on admission, it was 2.8, had gone down to 2.1; her magnesium on admission was 1.9, it had gone down to 1.6. Her iron studies had been done, which showed her iron level 27, normal 50 to 170; her TIBC 164; percent saturation 16.5, which is low; and ferritin was elevated at 283. Her CRP was done, it was 5.7. ProBNP on admission was 477, it did go up to 1287 after IV hydration as well as her hydrochlorothiazide had been held. Her vitamin B12 was checked on admission and was greater than 1500. Vitamin D was just borderline low at 29. Urinalysis did show E coli. She had initially been placed on sulfa to treat it, but when sensitivities came back, she was switched to Cipro. TRANSFER MEDICATIONS: Her medications at the time of transfer will be Tylenol 650 q.4 hours p.r.n. pain; Tylenol Extra Strength 1000 mg t.i.d. p.r.n. pain; albuterol 2 puffs every 4 hours p.r.n. cough; Dulcolax suppository 10 mg daily p.r.n.; Cipro 250 mg 1 p.o. b.i.d. until 12/29/2018; vitamin B12, 1000 mcg IM monthly; Lovenox 30 mg subcu daily until more ambulatory; hydrochlorothiazide 25 mg 1 pill daily; milk of magnesia 30 mL daily q.12 hours p.r.n.; magnesium oxide 400 mg b.i.d.; metoprolol XL 50 mg 1 pill daily; Protonix 40 mg daily; potassium chloride 20 mEq daily; and Senna Plus 1 pill twice a day, which was a new medicine. CODE STATUS: Her code level status at the time of transfer is do not resuscitate and do not intubate. PHYSICAL EXAMINATION ON TRANSFER: Heart: Regular rate and rhythm. Lungs: She has a chronic cough. She has had mild congestion on the bases. Abdomen: Soft. Neurologic: She is pleasantly confused. The patient will receive PT and OT while on swing bed as well. To note, her meloxicam has been held as well as her atorvastatin at the present time. GM12/25/2018 08:27:37 MODL: 12/26/2018 05:02:40 /[id number]
== END 2018-12-25 08:30 | disposition swing bed (61) | DRG 683 ==
LOC: VM.MS 11:03
PROVIDERS: ADMIT Family Medicine; ATTEND Family Medicine
DX: N17.9 Acute kidney failure, unspecified (principal); I50.32 Chronic diastolic (congestive) heart failure; N39.0 Urinary tract infection, site not specified; D61.818 Other pancytopenia; T39.395A Adverse effect of other nonsteroidal anti-inflammatory drugs [NSAID], initial encounter; E86.0 Dehydration; K80.20 Calculus of gallbladder without cholecystitis without obstruction; K29.80 Duodenitis without bleeding; E78.00 Pure hypercholesterolemia, unspecified; E53.8 Deficiency of other specified B group vitamins; E55.9 Vitamin D deficiency, unspecified; I11.0 Hypertensive heart disease with heart failure; F32.9 Major depressive disorder, single episode, unspecified; K21.9 Gastro-esophageal reflux disease without esophagitis; Z96.652 Presence of left artificial knee joint; Z96.651 Presence of right artificial knee joint; R62.7 Adult failure to thrive; K57.90 Diverticulosis of intestine, part unspecified, without perforation or abscess without bleeding; B96.20 Unspecified Escherichia coli [E. coli] as the cause of diseases classified elsewhere; E83.42 Hypomagnesemia; D32.9 Benign neoplasm of meninges, unspecified; K59.09 Other constipation; M19.91 Primary osteoarthritis, unspecified site; Z86.010 Personal history of colon polyps; I25.2 Old myocardial infarction; Z98.49 Cataract extraction status, unspecified eye; Z98.1 Arthrodesis status; Z68.33 Body mass index [BMI] 33.0-33.9, adult
CPT/HCPCS: 36415; 70450; 71046; 74177; 74181; 80048; 80053; 81001; 82306; 82607; 82728; 83540; 83550; 83605; 83690; 83735; 83880; 84443; 85025; 86140; 87086; 87088; 87186; 87338; 93005; 97161-GP; 97165-GO; 97530-GP; A9270-GY; G0515-GO; J1650; J7042; Q9967

== ENCOUNTER 2018-12-25 08:16 | Inpatient (IN) | payer MEDICARE, OTHER ==
[2018-12-25] MEDS ORDERED: Albuterol HFA 18 Gm Inhaler INH PRN (09:26)
[2018-12-25] MEDS: Magnesium Oxide 400 MG Tab PO SCH ×2 (09:39→19:14)
[2018-12-25] MEDS: Hydrochlorothiazide 25 MG Tab PO SCH (09:39)
[2018-12-25] MEDS: Potassium Chloride 10 MEQ Tab.ER PO SCH (09:39)
[2018-12-25] MEDS: Metoprolol Succinate 50 MG Tab.ER PO SCH (09:39)
[2018-12-25] MEDS: Ciprofloxacin 250 MG Tab PO SCH ×2 (09:39→19:13)
[2018-12-25] MEDS: Pantoprazole 40 MG Tab.CR PO SCH (19:13)
[2018-12-26] MEDS: Ciprofloxacin 250 MG Tab PO SCH ×2 (07:54→20:32)
[2018-12-26] MEDS: Magnesium Oxide 400 MG Tab PO SCH ×2 (07:54→20:32)
[2018-12-26] MEDS: Metoprolol Succinate 50 MG Tab.ER PO SCH (07:54)
[2018-12-26] MEDS: Potassium Chloride 10 MEQ Tab.ER PO SCH (07:54)
[2018-12-26] MEDS: Hydrochlorothiazide 25 MG Tab PO SCH (07:55)
[2018-12-26] MEDS ORDERED: Enoxaparin 30 MG/0.3 ML Syringe SUBCUT SCH (08:00)
--- NOTE | 2018-12-26 20:20 | PCM.SN ---
- Free Text/Narrative Note: Due to pt dropping hemoglobin and known duodenitis by CT scan, will stop lovenox. Her iron storage tests did show anemia of chronic disease, but because of the low Iron saturation, will add 1 iron pill daily. Will recheck labs on 12/28.
[2018-12-26] MEDS: Pantoprazole 40 MG Tab.CR PO SCH (20:32)
[2018-12-26] MEDS: Iron Polysaccharides Complex 150 MG Cap PO SCH (20:34)
[2018-12-27] MEDS: Hydrochlorothiazide 25 MG Tab PO SCH (07:42)
[2018-12-27] MEDS: Ciprofloxacin 250 MG Tab PO SCH ×2 (07:43→20:01)
[2018-12-27] MEDS: Potassium Chloride 10 MEQ Tab.ER PO SCH (07:43)
[2018-12-27] MEDS: Iron Polysaccharides Complex 150 MG Cap PO SCH (07:43)
[2018-12-27] MEDS: Magnesium Oxide 400 MG Tab PO SCH ×2 (07:43→20:01)
[2018-12-27] MEDS: Metoprolol Succinate 50 MG Tab.ER PO SCH (07:43)
[2018-12-27] MEDS: Pantoprazole 40 MG Tab.CR PO SCH (20:01)
[2018-12-28 06:49] LABS: ANION GAP 13.4 mmol/L (10-20)
[2018-12-28] MEDS: Ciprofloxacin 250 MG Tab PO SCH ×2 (07:45→19:40)
[2018-12-28] MEDS: Metoprolol Succinate 50 MG Tab.ER PO SCH (07:45)
[2018-12-28] MEDS: Hydrochlorothiazide 25 MG Tab PO SCH (07:46)
[2018-12-28] MEDS: Magnesium Oxide 400 MG Tab PO SCH ×2 (07:46→19:40)
[2018-12-28] MEDS: Potassium Chloride 10 MEQ Tab.ER PO SCH (07:46)
[2018-12-28] MEDS: Iron Polysaccharides Complex 150 MG Cap PO SCH (08:02)
--- NOTE | 2018-12-28 08:58 | PN ---
Progress Note for DAVID KUMAR Date: 12/28/2018 Room #: VM.217 SUBJECTIVE: The patient is feeling better. She is getting a little bit more of an appetite. She does not have her teeth in this morning, so she does prefer softer foods. The patient otherwise is getting stronger working with therapies. In reviewing her hemoglobin, it was noted that after Lovenox was started that seemed to be when her hemoglobin was dropping, so I did stop her Lovenox and also did start her on iron pill. OBJECTIVE: Vital Signs: Her weight is stable at 94.3 kg, her temperature is 36.9, pulse 81, blood pressure is 134/51, saturations are 97%, respiratory rate is 16. Skin: [place], warm, and dry. Heart: Regular rate and rhythm. Lungs: Clear to auscultation. Does have a chronic cough. Abdomen: Soft. Extremities: Lower extremities, no edema. LABORATORY DATA: Lab today shows her hemoglobin has improved to 9.2, white blood cell count has improved to 3.7, platelets have also improved to 103. Sodium is 138, potassium borderline low at 3.4, creatinine stable at 0.9, GFR 59. Magnesium borderline low at 1.4. ProBNP is normal at 427. IMPRESSION: 1. Failure to thrive, improved. 2. Urinary tract infection with Escherichia coli. 3. Anemia of chronic disease. 4. Duodenitis. 5. Cholelithiasis, asymptomatic. 6. Cognitive dysfunction. 7. Hypertension. 8. Hypomagnesemia. PLAN: We will continue her potassium and magnesium at the same levels. We will continue with therapies for OT and PT for strengthening. She will complete her antibiotics as directed. Anticipate discharge home early next week. She will not be on Lovenox because of problems with anemia and we will continue the iron supplementation. Her son, Ino, was present also and was made aware of current plans. We will need to make sure that her colon stays regular with the addition of the iron pills as well. GM12/28/2018 08:20:37 MODL: 12/28/2018 08:51:29 /[id number] ARIC
[2018-12-28] MEDS: Acetaminophen 500 MG Tab PO PRN (19:40)
[2018-12-28] MEDS: Pantoprazole 40 MG Tab.CR PO SCH (19:40)
[2018-12-29] MEDS: Metoprolol Succinate 50 MG Tab.ER PO SCH (08:24)
[2018-12-29] MEDS: Ciprofloxacin 250 MG Tab PO SCH (08:26)
[2018-12-29] MEDS: Iron Polysaccharides Complex 150 MG Cap PO SCH (08:26)
[2018-12-29] MEDS: Magnesium Oxide 400 MG Tab PO SCH ×2 (08:26→19:27)
[2018-12-29] MEDS: Hydrochlorothiazide 25 MG Tab PO SCH (08:26)
[2018-12-29] MEDS: Potassium Chloride 10 MEQ Tab.ER PO SCH (08:26)
[2018-12-29] MEDS: Acetaminophen 500 MG Tab PO PRN (19:27)
[2018-12-29] MEDS: Pantoprazole 40 MG Tab.CR PO SCH (19:27)
[2018-12-30] MEDS: Iron Polysaccharides Complex 150 MG Cap PO SCH (07:27)
[2018-12-30] MEDS: Potassium Chloride 10 MEQ Tab.ER PO SCH (07:27)
[2018-12-30] MEDS: Magnesium Oxide 400 MG Tab PO SCH ×2 (07:27→19:17)
[2018-12-30] MEDS: Hydrochlorothiazide 25 MG Tab PO SCH (07:27)
[2018-12-30] MEDS: Metoprolol Succinate 50 MG Tab.ER PO SCH (07:28)
[2018-12-30] MEDS: Pantoprazole 40 MG Tab.CR PO SCH (19:17)
[2018-12-30] MEDS: Acetaminophen 500 MG Tab PO PRN (19:18)
[2018-12-31 06:58] LABS: CHLORIDE,CL 101 mmol/L (98-107); SODIUM,NA 138 mmol/L (136-145)
[2018-12-31 07:00] LABS: ANION GAP 10.4 mmol/L (10-20)
[2018-12-31] MEDS: Hydrochlorothiazide 25 MG Tab PO SCH (07:21)
[2018-12-31] MEDS: Iron Polysaccharides Complex 150 MG Cap PO SCH (07:21)
[2018-12-31] MEDS: Metoprolol Succinate 50 MG Tab.ER PO SCH (07:22)
[2018-12-31] MEDS: Magnesium Oxide 400 MG Tab PO SCH ×2 (07:22→19:44)
[2018-12-31] MEDS: Acetaminophen 500 MG Tab PO PRN ×2 (07:23→19:44)
[2018-12-31] MEDS: Potassium Chloride 10 MEQ Tab.ER PO SCH ×2 (07:24→17:09)
--- NOTE | 2018-12-31 09:57 | PN ---
Progress Note for DAVID KUMAR Date: 12/31/2018 Room #: VM.217 SUBJECTIVE: The patient is feeling stronger. She is feeling like she will be able to go home tomorrow. She is finishing with therapies today. OBJECTIVE: Vital Signs: Her weight is 93.7 kg, which is stable. Her temperature is 36.7, pulse 87. Blood pressure had been 129/54, this morning was 179/75. Her blood pressure has to be rechecked this morning because she went from 119 to 179 in a matter of an hour. Her respiratoins are 16, saturations are 95%. SKIN: [place], warm, and dry. HEART: Regular rate and rhythm. LUNGS: Clear to auscultation. ABDOMEN: Soft. LABORATORY DATA: Her lab work was done today, which shows her hemoglobin has slightly dropped at 8.8, white blood cell count 2.9, platelets are 115; 61 segs, 4 bands, 15 lymphs, 12 monocytes. Sodium is 138, potassium is 3.4, creatinine is 0.8, GFR greater than 60. Magnesium is up to 1.8. LFTs are normal. Total albumin is 2.3. IMPRESSION: 1. Failure to thrive, which is improved. 2. Urinary tract infection, which has resolved. 3. Duodenitis. 4. Anemia of chronic disease. 5. Mild cognitive dysfunction. 6. Hypertension. 7. Asymptomatic cholelithiasis. 8. Hypomagnesemia, which is improved. PLAN: We will have the patient finish her therapies today. She will get ready for discharge tomorrow. We will clarify if she wants home health or not; we will ask her son; she does not think she needs it since she has her son. GM12/31/2018 08:15:18 MODL: 12/31/2018 09:20:34 /[id number] MTDDomitila
[2018-12-31] MEDS: Pantoprazole 40 MG Tab.CR PO SCH (19:44)
[2019-01-01 06:01] VITALS: BP 115/46; PULSE 73
[2019-01-01] MEDS: Metoprolol Succinate 50 MG Tab.ER PO SCH (07:54)
[2019-01-01] MEDS: Potassium Chloride 10 MEQ Tab.ER PO SCH (07:54)
[2019-01-01] MEDS: Iron Polysaccharides Complex 150 MG Cap PO SCH (07:54)
[2019-01-01] MEDS: Magnesium Oxide 400 MG Tab PO SCH (07:55)
[2019-01-01] MEDS: Hydrochlorothiazide 25 MG Tab PO SCH (07:56)
--- NOTE | 2019-01-02 03:31 | DISCH ---
PRIMARY DIAGNOSES: 1. Failure to thrive. 2. Dehydration. 3. Acute kidney injury. 4. Urinary tract infection with E. coli. 5. Asymptomatic cholelithiasis. 6. Duodenitis. 7. Anemia of chronic disease and iron-deficiency anemia. 8. Mild hypomagnesemia. 9. Hypertension. 10.Chronic cough. 11.Meningioma. 12.Mild cognitive dysfunction. 13.Osteoarthritis. 14.Gastroesophageal reflux disease. 15.Hypercholesterolemia. SUMMARY OF HISTORY AND PHYSICAL: The patient presented to the clinic for poor appetite. She lost 20 pounds over the past month, has not been eating well, was more confused, vague complaints. She was with her son, and he could not ascertain more concerning problems. While she was on acute care, she was found to have E. coli cholecystitis. She is known to have cholelithiasis, but concern for any choledochal disease, so she had an MRI of her abdomen which did not show any blocked stone. She had normal LFTs and normal amylase. The patient was also found to have duodenitis. She was started on Protonix. She did have stool test for H. pylori that was negative. She did become anemic after becoming hydrated. Also, her potassium was noted to be low as well as magnesium low. She received physical therapy and occupational therapy. SUMMARY OF SWING BED COURSE: While on swing bed, she continued to still have therapies. Her lab was monitored. It was noted that her hemoglobin had dropped down to 8.8. She was stopped on Lovenox as that was felt to possibly be a contributing factor to her anemia as she was up ambulating. Her white blood cell count was borderline low at 2.9 on 12/31/2018, platelets were 115, which had actually improved. On 12/31, her sodium was 138, potassium 3.4, creatinine 0.8, GFR greater than 60, calcium 8.4, magnesium 1.8, ALT 21, AST 21, albumin was 2.3. Her proBNP had been checked on 12/28/2018, it was 427. The patient was felt to be at her baseline and able to return home. Her son felt comfortable taking her as well. DISCHARGE MEDICATIONS: Aspirin 81 mg 1 pill daily, hydrochlorothiazide 25 mg 1 pill daily, vitamin B12 1000 mcg IM monthly, Tylenol 500 mg 2 pills 3 times a day as needed, metoprolol-XL 50 mg half a pill daily, lovastatin 40 mg 1 pill at bedtime, Mobic 7.5 mg 1 pill twice a day as needed, albuterol 2 puffs every 4 hours as needed for cough, iron 150 mg 1 pill daily, magnesium oxide 400 mg 1 pill twice a day, Protonix 40 mg 1 pill at bedtime, potassium chloride 10 mEq 2 pills twice a day. FOLLOWUP: The patient is to see me back in 2 weeks' time in the clinic for recheck. At that time, she will need to have a CBC, comprehensive metabolic profile, magnesium levels checked. The patient had declined home health and felt she did not need it, and so therefore was not set up for. The patient at the time discharge is do not resuscitate, do not intubate code level status. GM01/01/2019 09:16:41 MODL: 01/02/2019 03:25:57 /[id number]
[2019-01-09] MEDS ORDERED: Cyanocobalamin (Vitamin B12) 1,000 MCG/ML SDV IM SCH (08:00)
== END 2019-01-01 12:42 | disposition home or self-care (01) | DRG 683 ==
LOC: VM.MS 08:30
PROVIDERS: ADMIT Family Medicine; ATTEND Family Medicine
DX: N17.9 Acute kidney failure, unspecified (principal); N39.0 Urinary tract infection, site not specified; R62.7 Adult failure to thrive; E86.0 Dehydration; B96.20 Unspecified Escherichia coli [E. coli] as the cause of diseases classified elsewhere; K80.20 Calculus of gallbladder without cholecystitis without obstruction; K29.80 Duodenitis without bleeding; D63.8 Anemia in other chronic diseases classified elsewhere; E83.42 Hypomagnesemia; I10 Essential (primary) hypertension; R05 Cough; D32.9 Benign neoplasm of meninges, unspecified; M19.90 Unspecified osteoarthritis, unspecified site; K21.9 Gastro-esophageal reflux disease without esophagitis; E78.00 Pure hypercholesterolemia, unspecified; K59.00 Constipation, unspecified; E66.9 Obesity, unspecified; G31.84 Mild cognitive impairment of uncertain or unknown etiology; Z68.33 Body mass index [BMI] 33.0-33.9, adult
CPT/HCPCS: 36415; 80048; 80053; 83735; 83880; 85025; 85027; 97110-GO; 97110-GP; 97116-GP; 97530-GP; 97535-GO; A9270-GY; J1650

== ENCOUNTER 2019-03-12 17:08 | Emergency (ER) | payer MEDICARE, OTHER ==
[2019-03-12] MEDS ORDERED: Sodium Chloride 0.9% 10 ML Syringe FLUSH PRN (17:26)
--- NOTE | 2019-03-12 17:38 | EDM.PDOC ---
ED HPI GENERAL MEDICAL PROBLEM - General Stated Complaint: WEAKNESS ON LEFT SIDE Time Seen by Provider: 03/12/19 17:16 Source of Information: Reports: Patient History Limitations: Reports: No Limitations - History of Present Illness INITIAL COMMENTS - FREE TEXT/NARRATIVE: Rosario is an 88 y/o lady who is brought to the ER by her son. She has been experiencing left sided arm and leg weakness for the last 2 days and her speech has also been slightly slurred. She reports, "I cannot get my hand to work." She otherwise reports feeling fine and no other illnesses. She has her seasonal flu shot a week ago at the [facility]. - Related Data Allergies Allergy/AdvReac Type Severity Reaction Status Date / Time OKSANA Inhibitors Allergy Bronchospas Verified 03/12/19 17:43 ms valsartan [From Diovan] Allergy Bronchospas Verified 03/12/19 17:43 ms metoclopramide HCl AdvReac Nausea and Verified 03/12/19 17:43 [From Reglan] Vomiting Home Meds: Home Meds Cyanocobalamin (Vitamin B-12) [Cyanocobalamin Injection] 1,000 mcg IM Q28D 01/27 [History] Acetaminophen [Acetaminophen Extra Strength] 1,000 mg PO TID PRN 01/08/16 [ History] Metoprolol Succinate [Toprol Xl] 50 mg PO DAILY 01/08/17 [History] Albuterol Sulfate [Albuterol Sulfate Hfa] 2 puff IH Q4HR PRN 12/21/18 [History] Iron Polysaccharides Complex [Ferrex 150] 150 mg PO DAILY #30 cap 01/01/19 [Rx] Magnesium Oxide 400 mg PO BID #60 tablet 01/01/19 [Rx] Pantoprazole [ProTONIX] 40 mg PO BEDTIME #30 tab.cr 01/01/19 [Rx] Potassium Chloride [Klor-Con 10] 20 meq PO BIDMEALS #120 tab.er 01/01/19 [Rx] Aspirin [Adult Low Dose Aspirin EC] 81 mg DAILY 03/12/19 [History] Furosemide 20 mg DAILY 03/12/19 [History] Lovastatin 40 mg BEDTIME 03/12/19 [History] Magnesium Chloride [Mag-64] 2 tab BID 03/12/19 [History] Meloxicam 7.5 mg BID PRN 03/12/19 [History] Past Medical History HEENT History: Reports: Hard of Hearing Cardiovascular History: Reports: CAD, Heart Failure, High Cholesterol, Hypertension Other Cardiovascular History: Valvular heart disease. hypopotassemia. Venous peripheral insuffiency. 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: Musculoskeletal History: Reports: Osteoarthritis Other Musculoskeletal History: Carpal tunnel syndrome Endocrine/Metabolic History: Reports: Obesity/BMI 30+ Other Endocrine/Metabolic History: Hyperglycemia Hematologic History: Reports: Anemia, B12 Deficiency, Iron Deficiency Other Hematologic History: VitaminD deficiency Immunologic History: Reports: None - Infectious Disease History Infectious Disease History: Reports: C-Difficile - Past Surgical History HEENT Surgical History: Reports: Cataract Surgery GI Surgical History: Reports: Colonoscopy Other Neurological Surgeries/Procedures: LOWER BACK Musculoskeletal Surgical History: Reports: Knee Replacement Social & Family History - Family History Family Medical History: Noncontributory Other Oncologic Family History: sister of cancer - Caffeine Use Caffeine Use: Reports: Coffee, Soda Caffeine Use Comment: 2 cups/ day. Soda 1 can/ day Review of Systems - Review of Systems Review Of Systems: See Below Constitutional: Reports: Weakness Eyes: Reports: No Symptoms Ears: Reports: No Symptoms Nose: Reports: No Symptoms Mouth/Throat: Reports: No Symptoms Respiratory: Reports: No Symptoms Cardiovascular: Reports: No Symptoms GI/Abdominal: Reports: No Symptoms Genitourinary: Reports: No Symptoms Musculoskeletal: Reports: No Symptoms Skin: Reports: No Symptoms Neurological: Reports: Tremors (left hand), Weakness (left arm and left leg x 2 days) Psychiatric: Reports: No Symptoms ED EXAM, GENERAL - Physical Exam Exam: See Below General Appearance: Alert, WD/WN, No Apparent Distress (eldery female, NAD) Ears: Normal External Exam, Normal Canal, Hearing Grossly Normal, Normal TMs Nose: Normal Inspection, Normal Mucosa, No Blood Throat/Mouth: Normal Inspection, Normal Lips, Normal Voice, No Airway Compromise , Other (Upper dentures present, no teeth lower) Head: Atraumatic Neck: Supple, Non-Tender Respiratory/Chest: No Respiratory Distress, Lungs Clear, Normal Breath Sounds, Chest Non-Tender Cardiovascular: Normal Peripheral Pulses, Regular Rate, Rhythm, No JVD, No Murmur GI/Abdominal: Normal Bowel Sounds, Soft, Non-Tender (Female) Exam: Deferred Rectal (Female) Exam: Deferred Back Exam: Normal Inspection, Full Range of Motion Extremities: Normal Capillary Refill, Pedal Edema (1+ to bilateral lower legs) Neurological: Alert, Oriented, CN II-XII Intact, Sensory/Motor Deficit (unable to lift left leg; note tremor to left hand) Psychiatric: Normal Affect, Normal Mood Skin Exam: Warm, Dry, Intact, Normal Color, No Rash, Ecchymosis (scattered bruises to arms, legs, feet, left breast, and buttocks) Lymphatic: No Adenopathy EKG INTERPRETATION EKG Date: 03/12/19 Time: 17:16 Rhythm: NSR Rate (Beats/Min): 64 Comparison: No Change EKG Interpretation Comments: NSR, inverted T waves noted V1,V2,V3 but present on previous EKG 12/21/2018 Course - Vital Signs Text/Narrative:: 1720 The patient was seen on arrival to the ER. Labs, EKG, and Diagnostic Imaging ordered. 1800 Radiologist calls with +CT report. Notes Acute on Chronic Subdural Hematoma. Lab call with critically low platelets. Plt=0. Lab reconfirmed with repeat draw. [address] [facility] contacted and transport requested. Dr De Souza, Hospitalist questioned documents examiner accepts the patient for transport. Will await further bed assignment and call from NeuroSurgeon. 1835 Dr Mccabe advises TXA 1000mg IV and Keppra 500mg IV given DAMASO. 1845 Discussed with patient and her family her DNR status. Discuss that potential exists that she would have increased bleeding in transfer and her neuro status could decline. If this occurred, patient does NOT desire surgery at this time of discussion with her and her children. She requests comfort measures if this would occur. Questions answered as able for the patient and her family and advised that neurosurgeon will be able to answer further questions on arrival to [facility]. Patient remained stable and left the ER with [facility]. Last Recorded V/S: Last Vital Signs Temp 36.8 C 03/12/19 17:08 Pulse 61 03/12/19 18:45 Resp 16 03/12/19 18:45 BP 157/61 H 03/12/19 18:45 Pulse Ox 98 03/12/19 17:08 - Orders/Labs/Meds Orders: Active Orders 24 hr Category Date Time Status EKG Documentation Completion [RC] STAT Care 03/12/19 17:27 Active Sodium Chloride 0.9% [Saline Flush] Med 03/12/19 17:26 Active 10 ml FLUSH ASDIRECTED PRN levETIRAcetam [Keppra] 500 mg Med 03/12/19 18:49 Ordered Sodium Chloride 0.9% [Normal Saline] 100 ml IV ONETIME Saline Lock Insert [OM.PC] Stat Oth 03/12/19 17:27 Ordered Medication Orders Levetiracetam 500 mg/ Sodium (Chloride) 105 mls @ 400 mls/hr IV ONETIME ONE Stop: 03/12/19 19:03 Sodium Chloride (Saline Flush) 10 ml FLUSH ASDIRECTED PRN PRN Reason: Keep Vein Open Labs: Laboratory Tests 03/12/19 03/12/19 03/12/19 Range/Units 17:27 17:27 17:27 WBC 4.0 (4.0-10.0) x10^3/uL RBC 2.61 L (4.00-5.50) x10^6/uL Hgb 7.8 L (12.0-16.0) g/dL Hct 25.2 L (33.0-47.0) % MCV 96.6 H (78.0-93.0) fL MCH 29.9 (26.0-32.0) pg MCHC 31.0 L (32.0-36.0) g/dL RDW Coeff of Jad 13.2 (10.0-15.0) % Plt Count 0 L* D (130-400) x10^3/uL Neut % (Auto) 73.3 (50.0-80.0) % Lymph % (Auto) 11.6 L (25.0-50.0) % Livingston % (Auto) 9.7 (2.0-11.0) % Eos % (Auto) 5.2 H (0.0-4.0) % Baso % (Auto) 0.2 (0.2-1.2) % PT 9.9 L (10.0-12.8) SEC INR 0.9 L (2.0-3.5) APTT (24.0-36.0) SEC Sodium 144 (69-191) mmol/L Potassium 3.9 (1.5-9.9) mmol/L Chloride 106 (54-184) mmol/L Carbon Dioxide 26 (21-32) mmol/L Anion Gap 15.9 (10-20) mmol/L BUN 26 H (7-18) mg/dL Creatinine 1.4 H (0.55-1.02) mg/dL Est Cr Clr Drug Dosing 26.50 mL/min Estimated GFR (MDRD) 36 Glucose 157 H (74-106) mg/dL Calcium 8.5 (8.5-10.1) mg/dL Corrected Calcium 9.06 (8.5-10.1) mg/dL Total Bilirubin 0.7 (0.2-1.0) mg/dL AST 14 L (15-37) U/L ALT 14 (14-59) U/L Alkaline Phosphatase 88 (46-116) U/L Troponin I < 0.017 (<=0.056) ng/mL NT-Pro-B Natriuret Pep 1234 H (<=450) pg/mL Total Protein 7.2 (6.4-8.2) g/dL Albumin 3.3 L (3.4-5.0) g/dL Globulin 3.9 Albumin/Globulin Ratio 0.85 Urine Color (YELLOW) Urine Appearance (CLEAR) Urine pH (5.0-8.0) Ur Specific Hancock Urine Protein (NEGATIVE) mg/dL Urine Glucose (UA) (NEGATIVE) mg/dL Urine Ketones (NEGATIVE) mg/dL Urine Occult Blood (NEGATIVE) Urine Nitrite (NEGATIVE) Urine Bilirubin (NEGATIVE) Urine Urobilinogen (0.2) EU/dL Ur Leukocyte Esterase (NEGATIVE) Urine RBC (NOT SEEN) /HPF Urine WBC (NOT SEEN) /HPF Ur Squamous Epith Cells (NEGATIVE) /HPF Urine Bacteria (NEGATIVE) /HPF Hyaline Casts (NEGATIVE) /HPF Urine Mucus (NEGATIVE) /LPF 03/12/19 03/12/19 Range/Units 17:27 18:25 WBC (4.0-10.0) x10^3/uL RBC (4.00-5.50) x10^6/uL Hgb (12.0-16.0) g/dL Hct (33.0-47.0) % MCV (78.0-93.0) fL MCH (26.0-32.0) pg MCHC (32.0-36.0) g/dL RDW Coeff of Jad (10.0-15.0) % Plt Count (130-400) x10^3/uL Neut % (Auto) (50.0-80.0) % Lymph % (Auto) (25.0-50.0) % Livingston % (Auto) (2.0-11.0) % Eos % (Auto) (0.0-4.0) % Baso % (Auto) (0.2-1.2) % PT (10.0-12.8) SEC INR (2.0-3.5) APTT 22.1 L (24.0-36.0) SEC Sodium (69-191) mmol/L Potassium (1.5-9.9) mmol/L Chloride (54-184) mmol/L Carbon Dioxide (21-32) mmol/L Anion Gap (10-20) mmol/L BUN (7-18) mg/dL Creatinine (0.55-1.02) mg/dL Est Cr Clr Drug Dosing mL/min Estimated GFR (MDRD) Glucose (74-106) mg/dL Calcium (8.5-10.1) mg/dL Corrected Calcium (8.5-10.1) mg/dL Total Bilirubin (0.2-1.0) mg/dL AST (15-37) U/L ALT (14-59) U/L Alkaline Phosphatase (46-116) U/L Troponin I (<=0.056) ng/mL NT-Pro-B Natriuret Pep (<=450) pg/mL Total Protein (6.4-8.2) g/dL Albumin (3.4-5.0) g/dL Globulin Albumin/Globulin Ratio Urine Color Yellow (YELLOW) Urine Appearance Turbid H (CLEAR) Urine pH 5.5 (5.0-8.0) Ur Specific Hancock 1.015 Urine Protein Negative (NEGATIVE) mg/dL Urine Glucose (UA) Negative (NEGATIVE) mg/dL Urine Ketones Negative (NEGATIVE) mg/dL Urine Occult Blood Trace-lysed H (NEGATIVE) Urine Nitrite Positive H (NEGATIVE) Urine Bilirubin Negative (NEGATIVE) Urine Urobilinogen 0.2 (0.2) EU/dL Ur Leukocyte Esterase Negative (NEGATIVE) Urine RBC 0-5 (NOT SEEN) /HPF Urine WBC 0-5 (NOT SEEN) /HPF Ur Squamous Epith Cells Moderate H (NEGATIVE) /HPF Urine Bacteria Many H (NEGATIVE) /HPF Hyaline Casts Moderate H (NEGATIVE) /HPF Urine Mucus Few H (NEGATIVE) /LPF Meds: Medications Generic Name Dose Route Start Last Admin Trade Name Freq PRN Reason Stop Dose Admin Levetiracetam 500 mg/ Sodium 105 mls @ 400 mls/hr 03/12/19 18:49 Chloride IV 03/12/19 19:03 ONETIME ONE Sodium Chloride 10 ml 03/12/19 17:26 Saline Flush FLUSH ASDIRECTED PRN Keep Vein Open Discontinued Medications Generic Name Dose Route Start Last Admin Trade Name Freq PRN Reason Stop Dose Admin Tranexamic Acid 1,000 mg/ 110 mls @ 600 mls/hr 03/12/19 18:48 Sodium Chloride IV 03/12/19 18:58 BOLUS ONE Levetiracetam Confirm 03/12/19 19:00 Keppra Administered 03/12/19 19:01 Dose 500 mg .ROUTE .STK-MED ONE - Radiology Interpretation Free Text/Narrative:: 1.Acute on Chronic Subdural Hematoma 2.Right Frontal Meningioma-stable Departure - Departure Time of Disposition: 19:03 Disposition: DC/Tfer to Acute Hospital 02 Condition: Good Clinical Impression: Subdural hematoma, acute, Thrombocytopenia - Discharge Information *PRESCRIPTION DRUG MONITORING PROGRAM REVIEWED*: Not Applicable *COPY OF PRESCRIPTION DRUG MONITORING REPORT IN PATIENT CASS: Not Applicable Referrals: Valorie Antonio MD [Primary Care Provider] - Forms: Interfacility Transfer EMTALA Additional Instructions: -Transfer to [facility] to Dr Sifuentes for further care - Problem List & Annotations (1) Subdural hematoma, acute SNOMED Code(s): 478454606, 461225622 Code(s): S06.5X9A - TRAUM SUBDR HEM W LOC OF UNSP DURATION, INIT Status: Acute Current Visit: Yes (2) Thrombocytopenia SNOMED Code(s): 551038654 Code(s): D69.6 - THROMBOCYTOPENIA, UNSPECIFIED Status: Acute Current Visit: Yes - My Orders Last 24 Hours: My Active Orders 03/12/19 17:26 Sodium Chloride 0.9% [Saline Flush] 10 ml FLUSH ASDIRECTED PRN 03/12/19 17:27 EKG Documentation Completion [RC] STAT Saline Lock Insert [OM.PC] Stat 03/12/19 18:49 levETIRAcetam [Keppra] 500 mg Sodium Chloride 0.9% [Normal Saline] 100 ml IV ONETIME - Assessment/Plan Last 24 Hours: My Active Orders 03/12/19 17:26 Sodium Chloride 0.9% [Saline Flush] 10 ml FLUSH ASDIRECTED PRN 03/12/19 17:27 EKG Documentation Completion [RC] STAT Saline Lock Insert [OM.PC] Stat 03/12/19 18:49 levETIRAcetam [Keppra] 500 mg Sodium Chloride 0.9% [Normal Saline] 100 ml IV ONETIME
[2019-03-12 18:07] LABS: CHLORIDE,CL 106 mmol/L (54-184); SODIUM,NA 144 mmol/L (69-191)
--- NOTE | 2019-03-12 18:10 | CT ---
[id number] CT/CT Head WO IV EXAM: CT Head WO IV CLINICAL DATA: LEFT SIDED WEAKNESS FOR 2 DAYS, SLURRED SPEECH. COMPARISON STUDY: December 21, 2018 FINDINGS: Acute subdural hematoma along the left falx and tentorium. Additionally this runs along the left parietal convexity measuring up to 0.7 cm. No significant shift of midline. The component involving the falx appears to be acute on chronic. Stable appearance of a predominantly calcified extra-axial mass abutting the falx cerebra right of midline in the frontal region. Findings are consistent with a meningioma. Mass is stable in size measuring up to 4.0 cm. It does appear to be slightly increased edema adjacent to the mass. No new lesions. No hydrocephalus. Findings are superimposed on changes of moderate chronic small vessel disease, including diffuse parenchymal atrophy. IMPRESSION: 1. Acute on chronic subdural hematoma. The largest acute component is along the left parietal convexity measuring up to 0.7 cm. While there is mass effect on the surrounding brain, there is no significant shift of midline. 2. Right frontal meningioma is again identified. It is stable in size. There does appear to be some increased edema within the surrounding brain parenchyma. Findings discussed with the ordering provider at time of dictation. Yogi Evangelista DO 03/12/19 [id number] Thank you for allowing us to participate in the care of your patient.
--- NOTE | 2019-03-12 18:11 | CR ---
[id number] RAD/RAD Chest PA or AP 1V EXAM: RAD Chest PA or AP 1V INDICATION: LEFT SIDED WEAKNESS. COMPARISON: December 24, 2018. DISCUSSION: Cardiomediastinal silhouette is normal in size and contour. No infiltrate, effusion, pneumothorax, or edema. Pulmonary hyperinflation. IMPRESSION: No acute cardiopulmonary abnormality. Yogi Evangelista DO 03/12/19 1810 Thank you for allowing us to participate in the care of your patient.
[2019-03-12 18:16] LABS: ANION GAP 15.9 mmol/L (10-20)
[2019-03-12 18:46] VITALS: BP 157/61; PULSE 61
[2019-03-12] MEDS ORDERED: Tranexamic Acid 1,000 MG in Sodium Chloride 0.9% 100 ML IV ONE (18:48)
[2019-03-12] MEDS ORDERED: levETIRAcetam 500 MG in Sodium Chloride 0.9% 100 ML IV ONE (18:49)
[2019-03-12] MEDS ORDERED: levETIRAcetam 500 MG/5 ML SDV ONE (19:00)
== END 2019-03-12 19:50 | disposition short-term general hospital (02) ==
LOC: VM.ED 17:08
DX: I62.01 Nontraumatic acute subdural hemorrhage (principal); G81.94 Hemiplegia, unspecified affecting left nondominant side; R47.81 Slurred speech; D69.6 Thrombocytopenia, unspecified; I25.2 Old myocardial infarction; I25.10 Atherosclerotic heart disease of native coronary artery without angina pectoris; I11.0 Hypertensive heart disease with heart failure; I50.9 Heart failure, unspecified; E78.00 Pure hypercholesterolemia, unspecified; E53.8 Deficiency of other specified B group vitamins; K21.9 Gastro-esophageal reflux disease without esophagitis; D50.9 Iron deficiency anemia, unspecified; E87.6 Hypokalemia; E66.9 Obesity, unspecified; Z68.32 Body mass index [BMI] 32.0-32.9, adult; Z79.82 Long term (current) use of aspirin; Z79.899 Other long term (current) drug therapy; Z88.8 Allergy status to other drugs, medicaments and biological substances
CPT/HCPCS: 70450; 71045; 80053; 81001; 83880; 84484; 85025; 85610; 85730; 93005; 93010; 96365; 96375; 99284-GF; 99285-25; J1953; J7050